=== PATIENT | male | born 1945 | race Caucasian/White ===

== ENCOUNTER 2024-07-19 07:13 | Emergency (ER) | payer OTHER ==
--- NOTE | 2024-07-19 07:35 | ED ---
General Adult HPI - General Chief complaint: Abdominal Pain Stated complaint: ABD Pain Time Seen by Provider: 07/19/24 07:14 Source: patient, family, RN notes reviewed Mode of arrival: ambulatory Limitations: no limitations - History of Present Illness Initial comments: Patient is a 79-year-old male presenting to the emergency department with concerns with abdominal discomfort. Onset of symptoms was around 3:30 in the morning. Discomfort worsened over the next few hours. Discomfort is mostly the upper abdomen. Patient had a small bowel movement without change of symptoms. No nausea or vomiting. No fevers. No history of similar symptoms previously. Abdomen feels firm and distended. Patient states discomfort does increase with deep breaths. No increase of discomfort with normal breaths. Patient denies feeling short of breath otherwise. - Related Data Home Medications Medication Instructions Recorded Confirmed Cholecalciferol (Vitamin D3) 50 mcg PO DAILY 07/19/24 07/19/24 [Vitamin D3 (50 Mcg = 2000 Iu)] Hydrocortisone Cream 1 applic TOPICAL BID PRN 07/19/24 07/19/24 [Hydrocortisone 1% Cream] Quercetin/Zinc/Vitamin C 1 tab PO DAILY 07/19/24 07/19/24 Supplement Gummy Saffron Supplement Gummy 1 tab PO HS 07/19/24 07/19/24 Super Beet Supplement 1 tab PO DAILY 07/19/24 07/19/24 metroNIDAZOLE 0.75% CREAM 1 applic TOPICAL BID PRN 07/19/24 07/19/24 [Metrocream 0.75%] Previous Rx's Medication Instructions Recorded Azithromycin [Zithromax Z Pack] 250 mg PO DAILY #6 tab 07/19/24 Allergies Allergy/AdvReac Type Severity Reaction Status Date / Time Penicillins Allergy Rash/Hives Verified 07/19/24 09:33 Review of Systems ROS Statement: Those systems with pertinent positive or pertinent negative responses have been documented in the HPI. ROS Other: All systems not noted in ROS Statement are negative. Constitutional: Denies: fever Eyes: Denies: eye pain ENT: Denies: ear pain Respiratory: Reports: as per HPI. Denies: cough Cardiovascular: Denies: chest pain Endocrine: Denies: fatigue Gastrointestinal: Reports: as per HPI, abdominal pain. Denies: nausea, vomiting, diarrhea, constipation Skin: Denies: rash Neurological: Denies: weakness Past Medical History Additional Past Medical History / Comment(s): Kidney stones Past Surgical History: Cholecystectomy, Hernia Repair Smoking Status: Never smoker Past Alcohol Use History: None Reported Past Drug Use History: None Reported General Exam Limitations: no limitations General appearance: alert, in no apparent distress Head exam: Present: normocephalic Eye exam: Present: normal appearance Neck exam: Present: normal inspection Respiratory exam: Present: normal lung sounds bilaterally. Absent: respiratory distress, wheezes, rales, rhonchi, accessory muscle use, decreased breath sounds Cardiovascular Exam: Present: regular rate, normal rhythm, normal heart sounds Expanded Peripheral pulses: 2+: Dorsalis Pedis (R), Dorsalis Pedis (L) GI/Abdominal exam: Present: soft, distended (Abdomen does appear mildly distended), tenderness (Mild diffuse tenderness), hyperactive bowel sounds. Absent: guarding, rebound, rigid, pulsatile mass Extremities exam: Present: pedal edema (Trace bilateral which patient states is chronic). Absent: calf tenderness Neurological exam: Present: alert Psychiatric exam: Present: normal affect, normal mood Skin exam: Present: normal color Course Vital Signs 07/19/24 07/19/24 07/19/24 07:14 07:41 09:07 Temperature 98.2 F Pulse Rate 114 H 112 H 93 Respiratory 22 20 18 Rate Blood Pressure 155/85 147/99 136/85 O2 Sat by Pulse 98 97 95 Oximetry EKG Findings - EKG Results: EKG: interpreted by ERMD (Inferior Q waves), sinus rhythm, normal axis, normal ST/T Medical Decision Making - Medical Decision Making Was pt. sent in by a medical professional or institution (, PA, WAREHOUSE SELECTOR, urgent care, hospital, or [facility]...) When possible be specific @ -No Did you speak to anyone other than the patient for history (EMS, parent, family, police, friend...)? What history was obtained from this source @ - is present helps provide history. Further discussion regarding treatment Did you review nursing and triage notes (agree or disagree)? Why? @ -I reviewed and agree with nursing and triage notes Were old charts reviewed (outside hosp., previous admission, EMS record, old EKG, old radiological studies, urgent care reports/EKG's, [facility] records)? Report findings @ -No old charts were reviewed Differential Diagnosis (chest pain, altered mental status, abdominal pain women, abdominal pain men, vaginal bleeding, weakness, fever, dyspnea, syncope, headache, dizziness, GI bleed, back pain, seizure, CVA, palpatations, mental health, musculoskeletal)? @ -Differential Abdominal Pain Men: Appendicitis, cholecystitis, diverticulosis, ischemic bowel, pancreatitis, hepatitis, UTI, gastroenteritis, AAA, incarcerated hernia, bowel obstruction, constipation, inflammatory bowel, hepatitis, peptic ulcer disease, splenic inf arction, perforated viscus, testicular torsion, this is not meant to be an all- inclusive list EKG interpreted by me (3pts min.). @ -As above X-rays interpreted by me (1pt min.). @ -Chest x-ray shows nonspecific mild increased interstitial change CT interpreted by me (1pt min.). @ -CT abdomen pelvis shows mesenteric panniculitis. Also groundglass opacity lower lungs U/S interpreted by me (1pt. min.). @ -None done What testing was considered but not performed or refused? (CT, X-rays, U/S, la bs)? Why? @ -COVID-19 testing What meds were considered but not given or refused? Why? @ -None Did you discuss the management of the patient with other professionals (professionals i.e. , PA, WAREHOUSE SELECTOR, lab, RT, psych nurse, home health care social worker, front desk, teacher, medical laboratory technical officer, business case analyst)? Give summary @ -No Was smoking cessation discussed for >3mins.? @ -No Was critical care preformed (if so, how long)? @ -No Were there social determinants of health that impacted care today? How? (Homelessness, low income, unemployed, alcoholism, drug addiction, transportation, low edu. Level, literacy, decrease access to med. care, care home, rehab)? @ -No Was there de-escalation of care discussed even if they declined (Discuss DNR or withdrawal of care, Hospice)? DNR status @ -Very long discussion with patient and family regarding recommendation for testing for COVID-19. Risks and benefits discussed. Recommendation to have it done for potential antibiotic versus other treatment. Despite this long conv ersation this was refused. Patient will be prescribed antibiotics for potential bacterial pneumonia. Patient and family do demonstrate understanding there could be side effects associated with unnecessary medication. It is felt to be more beneficial to treat for potential bacterial pneumonia versus nontreatment given the fact that we are unable to test for COVID-19 secondary to patient refusal What co-morbidities impacted this encounter? (DM, HTN, Smoking, COPD, CAD, Cancer, CVA, ARF, Chemo, Hep., AIDS, mental health diagnosis, sleep apnea, morbid obesity)? @ -None Was patient admitted / discharged? Hospital course, mention meds given and route, prescriptions, significant lab abnormalities, going to OR and other pertinent info. @ -Patient presents with abdominal discomfort increased with deep breaths. Patient has mesenteric panniculitis. Patient also has questionable pneumonia and will be treated with antibiotics. Patient is resting comfortably in bed with minimal to no symptoms at this time. Patient and family add there has been a mild cough. Patient will be covered with antibiotics and recommended close follow-up Undiagnosed new problem with uncertain prognosis? @ -No Drug Therapy requiring intensive monitoring for toxicity (Heparin, Nitro, Insulin, Cardizem)? @ -No Were any procedures done? @ -No Diagnosis/symptom? @ -Mesenteric panniculitis, cough Acute, or Chronic, or Acute on Chronic? @ -Acute, acute Uncomplicated (without systemic symptoms) or Complicated (systemic symptoms)? @ -Default Side effects of treatment? @ -No Exacerbation, Progression, or Severe Exacerbation? @ -No Poses a threat to life or bodily function? How? (Chest pain, [place], [place], pneumonia, PE, COPD, DKA, ARF, appy, cholecystitis, CVA, Diverticulitis, Homicidal, Suicidal, threat to staff... and all critical care pts) @ -Threat to abdominal and pulmonary function - Lab Data Result diagrams: 07/19/24 07:49 07/19/24 07:49 Lab Results 07/19/24 07/19/24 07/19/24 Range/Units 07:49 07:49 07:49 WBC 8.5 (3.8-10.6) k/uL RBC 4.63 (4.30-5.90) m/uL Hgb 14.5 (13.0-17.5) gm/dL Hct 43.9 (39.0-53.0) % MCV 94.8 (80.0-100.0) fL MCH 31.3 (25.0-35.0) pg MCHC 33.0 (31.0-37.0) g/dL RDW 13.3 (11.5-15.5) % Plt Count 150 (150-450) k/uL MPV 8.7 Neutrophils % 78 % Lymphocytes % 14 % Monocytes % 5 % Eosinophils % 1 % Basophils % 0 % Neutrophils # 6.6 (1.3-7.7) k/uL Lymphocytes # 1.2 (1.0-4.8) k/uL Monocytes # 0.5 (0-1.0) k/uL Eosinophils # 0.1 (0-0.7) k/uL Basophils # 0.0 (0-0.2) k/uL PT 10.5 (10.0-12.5) sec INR 1.0 (<1.2) APTT 25.1 (22.0-30.0) sec Sodium 140 (137-145) mmol/L Potassium 4.5 (3.5-5.1) mmol/L Chloride 108 H (98-107) mmol/L Carbon Dioxide 24 (22-30) mmol/L Anion Gap 8 mmol/L BUN 12 (9-20) mg/dL Creatinine 0.76 (0.66-1.25) mg/dL Est GFR (CKD-EPI)AfAm >90 (>60 ml/min/1.73 sqM) Est GFR (CKD-EPI)NonAf 88 (>60 ml/min/1.73 sqM) Glucose 102 H (74-99) mg/dL Calcium 8.5 (8.4-10.2) mg/dL Total Bilirubin 1.0 (0.2-1.3) mg/dL AST 38 (17-59) U/L ALT 27 (4-49) U/L Alkaline Phosphatase 39 (38-126) U/L Troponin I (0.000-0.034) ng/mL Total Protein 7.0 (6.3-8.2) g/dL Albumin 3.9 (3.5-5.0) g/dL Amylase 47 (30-110) U/L Lipase 42 (23-300) U/L Urine Color Urine Appearance (Clear) Urine pH (5.0-8.0) Ur Specific Roland (1.001-1.035) Urine Protein (Negative) Urine Glucose (UA) (Negative) Urine Ketones (Negative) Urine Blood (Negative) Urine Nitrite (Negative) Urine Bilirubin (Negative) Urine Urobilinogen (<2.0) mg/dL Ur Leukocyte Esterase (Negative) 07/19/24 07/19/24 Range/Units 07:49 08:21 WBC (3.8-10.6) k/uL RBC (4.30-5.90) m/uL Hgb (13.0-17.5) gm/dL Hct (39.0-53.0) % MCV (80.0-100.0) fL MCH (25.0-35.0) pg MCHC (31.0-37.0) g/dL RDW (11.5-15.5) % Plt Count (150-450) k/uL MPV Neutrophils % % Lymphocytes % % Monocytes % % Eosinophils % % Basophils % % Neutrophils # (1.3-7.7) k/uL Lymphocytes # (1.0-4.8) k/uL Monocytes # (0-1.0) k/uL Eosinophils # (0-0.7) k/uL Basophils # (0-0.2) k/uL PT (10.0-12.5) sec INR (<1.2) APTT (22.0-30.0) sec Sodium (137-145) mmol/L Potassium (3.5-5.1) mmol/L Chloride (98-107) mmol/L Carbon Dioxide (22-30) mmol/L Anion Gap mmol/L BUN (9-20) mg/dL Creatinine (0.66-1.25) mg/dL Est GFR (CKD-EPI)AfAm (>60 ml/min/1.73 sqM) Est GFR (CKD-EPI)NonAf (>60 ml/min/1.73 sqM) Glucose (74-99) mg/dL Calcium (8.4-10.2) mg/dL Total Bilirubin (0.2-1.3) mg/dL AST (17-59) U/L ALT (4-49) U/L Alkaline Phosphatase (38-126) U/L Troponin I <0.012 (0.000-0.034) ng/mL Total Protein (6.3-8.2) g/dL Albumin (3.5-5.0) g/dL Amylase (30-110) U/L Lipase (23-300) U/L Urine Color Yellow Urine Appearance Clear (Clear) Urine pH 7.0 (5.0-8.0) Ur Specific Roland 1.014 (1.001-1.035) Urine Protein Negative (Negative) Urine Glucose (UA) Negative (Negative) Urine Ketones Negative (Negative) Urine Blood Negative (Negative) Urine Nitrite Negative (Negative) Urine Bilirubin Negative (Negative) Urine Urobilinogen <2.0 (<2.0) mg/dL Ur Leukocyte Esterase Negative (Negative) Disposition Clinical Impression: Mesenteric panniculitis, Cough Disposition: HOME SELF-CARE Condition: Stable Instructions (If sedation given, give patient instructions): Acute Cough (ED), Bacterial Pneumonia (ED), COVID-19 (Coronavirus Disease 2019) (ED), Acute Abdominal Pain (ED) Additional Instructions: Please do follow-up with your primary care physician beginning of the week. Return for increased pain, fever, difficulty breathing, vomiting, worsening or changing symptoms or any other concerns. Have your primary care physician review notes and radiology results from today please. Prescriptions: Azithromycin [Zithromax Z Pack] 250 mg PO DAILY #6 tab Is patient prescribed a controlled substance at d/c from ED?: No Referrals: [facility],Clinic [Primary Care Provider] - 1-2 days Time of Disposition: 09:51
[2024-07-19] MEDS: FAMOTIDINE 20 MG/2 ML VIAL IV STA (07:52)
[2024-07-19] MEDS: HYDROmorphone 1 MG/ML 1 ML SYRINGE IVP STA (07:52)
[2024-07-19 07:59] LABS: Basophils % (A) 0 %; Eosinophils # (A) 0.1 k/uL (0-0.7); Eosinophils % (A) 1 %; HCT 43.9 % (39.0-53.0); HGB 14.5 gm/dL (13.0-17.5); Lymphocytes # (A) 1.2 k/uL (1.0-4.8); Lymphocytes % (A) 14 %; MCH 31.3 pg (25.0-35.0); MCV 94.8 fL (80.0-100.0); Mean Platelet Volume 8.7; Monocytes # (A) 0.5 k/uL (0-1.0); Monocytes % (A) 5 %; Neutrophils # (A) 6.6 k/uL (1.3-7.7); Neutrophils % (A) 78 %; Platelet Count 150 k/uL (150-450); RBC 4.63 m/uL (4.30-5.90); RDW 13.3 % (11.5-15.5); WBC 8.5 k/uL (3.8-10.6)
[2024-07-19 08:08] LABS: Partial Thromboplastin Time 25.1 sec (22.0-30.0); Prothrombin Time 10.5 sec (10.0-12.5)
[2024-07-19 08:11] LABS: ALT 27 U/L (4-49); African American GFR (CKD) >90 (>60 ml/min/1.73 sqM); Albumin 3.9 g/dL (3.5-5.0); Amylase 47 U/L (30-110); Anion Gap 8 mmol/L; Blood Urea Nitrogen 12 mg/dL (9-20); Calcium 8.5 mg/dL (8.4-10.2); Carbon Dioxide 24 mmol/L (22-30); Chloride 108 mmol/L (98-107); Glucose 102 mg/dL (74-99); Lipase 42 U/L (23-300); Non-African American GFR(CKD) 88 (>60 ml/min/1.73 sqM); Sodium 140 mmol/L (137-145)
[2024-07-19 08:22] LABS: AST 38 U/L (17-59); Alkaline Phosphatase 39 U/L (38-126); Potassium 4.5 mmol/L (3.5-5.1)
[2024-07-19 08:26] LABS: Appearance,Urine Clear (Clear); Bilirubin,Urine Negative (Negative); Blood,Urine Negative (Negative); Color,Urine Yellow; Glucose,Urine (UA) Negative (Negative); Ketones,Urine Negative (Negative); Leukocyte Esterase,Urine Negative (Negative); Nitrite,Urine Negative (Negative); Protein,Urine Negative (Negative); Specific Gravity,Urine 1.014 (1.001-1.035); Urobilinogen,Urine <2.0 mg/dL (<2.0)
--- NOTE | 2024-07-19 08:32 | XR ---
EXAMINATION TYPE: XR chest 2V DATE OF EXAM: 07/19/2024 COMPARISON: None HISTORY: 79-year-old male shortness of breath sudden onset abdominal pain TECHNIQUE: AP and lateral views FINDINGS: Low lung volumes with crowded vascular markings. Heart borderline to mildly enlarged. Mild interstiti al density. No beau consolidation or pleural effusion. [facility] within the lower thoracic spine. IMPRESSION: Portable exam further limited by hypoventilatory changes. Interstitial prominence could reflect mild pulmonary vascular congestion, bronchitis, or asthma. [facility], , 07/19/2024 8:29 AM
--- NOTE | 2024-07-19 09:06 | CT ---
EXAMINATION TYPE: CT abdomen pelvis w con DATE OF EXAM: 07/19/2024 COMPARISON: NONE HISTORY: 79-year-old male distention, pain under the ribs, abd pain TECHNIQUE: Contiguous axial scanning of the abdomen and pelvis following administration of 100 ml Iso [id number] IV contrast. Delayed images through the kidneys and coronal/sagittal reconstructions perform ed. CT DLP: 1631.2 mGycm Automated exposure control for dose reduction was used. FINDINGS: There is multifocal patchy groundglass opacities of the lower lungs. No pleural effusion. Heart normal size without pericardial effusion. Small hiatal hernia. Liver enlarged at 23.1 cm with low attenuation. No focal lesions seen. Portal venous system is patent . No biliary ductal dilatation. Cholecystectomy clips. Adrenal glands, spleen, and pancreas within normal limits. Bilateral benign renal cortical cysts measuring up to 10.3 cm on the left and to largest measuring 8. 0 and 6.6 cm on the right. Nonobstructive 6 mm stone on the right and 8 mm on the left. No dilated small bowel, free fluid, or free air. Some prominent fluid filled small bowel loops mid to lower abdomen may be transient. A couple prominent mid mesenteric lymph nodes measuring up to 9 mm with associated cesia mesentery. N o retroperitoneal adenopathy. Mild to moderate stool. Proximal sigmoid diverticulosis. No pericolonic inflammatory change. There is moderate circumferential bladder wall thickening. Prominent prostatomegaly at 7.1 cm wide. V as deferens calcifications. No abnormal fluid collection in the pelvis or pelvic lymphadenopathy. Degenerative bony ankylosis SI joints. 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 Degenerative grade 1 anterolisthesis L4-L5. There may be severe focal spinal canal stenoses at both L 4-L5 and L5-S1. DISH visualized thoracic spine. Moderate degenerative change of the hips. IMPRESSION: 1. PATCHY GROUNDGLASS INFILTRATES AT THE LOWER LUNGS. CORRELATE TO EXCLUDE ATYPICAL/COVID PNEUMONIA O R SHANK CUTTER. 2. MID ABDOMINAL CESIA MESENTERY WITH A COUPLE PROMINENT LYMPH NODES. FINDINGS MAY BE SEEN WITH MESEN TERIC PANNICULITIS. FOLLOW-UP CT IN 6 MONTHS TO ENSURE STABILITY/RESOLUTION AND EXCLUDE MORE AGGRESSI VE ETIOLOGIES SUCH EARLY LYMPHOMA. 3. Marked prostatomegaly at 7.1 cm wide. Correlate with symptoms and PSA values. 4. Moderate circumferential bladder wall thickening probably chronic bladder wall hypertrophy. Correl ate to exclude cystitis. 5. Hepatomegaly at 23.1 cm with underlying hepatic steatosis. 6. Small hiatal hernia. Mild proximal sigmoid diverticulosis. [facility], , 07/19/2024 9:04 AM
[2024-07-19 09:09] VITALS: RESP 18
[2024-07-19 10:01] VITALS: BP 125/99; PULSE 96; TEMP 99.8
== END 2024-07-19 10:03 | disposition home or self-care (01) ==
LOC: EC 07:13
CPT/HCPCS: 36415; 71046; 74177; 80053; 81003; 82150; 83690; 84484; 85025; 85610; 85730; 93005; 96374; 96375; 99285

== ENCOUNTER 2024-08-08 12:34 | Inpatient (IN) | payer OTHER ==
--- NOTE | 2024-08-08 13:39 | ED ---
General Adult HPI - General Chief complaint: Weakness Stated complaint: weakness Time Seen by Provider: 08/08/24 12:38 Source: patient, EMS, RN notes reviewed, old records reviewed Mode of arrival: EMS Limitations: no limitations - History of Present Illness Initial comments: 79 old male presenting with chief complaint of weakness. Patient reports weak ness and exertional dyspnea. He states he had recent diagnosis of COVID. He had 2 episodes of vomiting this morning with associated mild abdominal pain which is resolved. He denies fever. Denies central chest pain. - Related Data Home Medications Medication Instructions Recorded Confirmed No Known Home Medications 08/08/24 08/08/24 Allergies Allergy/AdvReac Type Severity Reaction Status Date / Time Penicillins Allergy Rash/Hives Verified 08/08/24 13:36 Review of Systems ROS Statement: Those systems with pertinent positive or pertinent negative responses have been documented in the HPI. ROS Other: All systems not noted in ROS Statement are negative. Past Medical History Additional Past Medical History / Comment(s): Kidney stones History of Any Multi-Drug Resistant Organisms: None Reported Past Surgical History: Cholecystectomy, Hernia Repair Past Psychological History: No Psychological Hx Reported Smoking Status: Never smoker Past Alcohol Use History: None Reported Past Drug Use History: None Reported General Exam Limitations: no limitations General appearance: alert, in no apparent distress Head exam: Present: atraumatic, normocephalic Eye exam: Present: normal appearance, PERRL ENT exam: Present: normal exam Neck exam: Present: normal inspection. Absent: tenderness, meningismus Respiratory exam: Present: normal lung sounds bilaterally. Absent: respiratory distress, wheezes, rhonchi Cardiovascular Exam: Present: normal rhythm, tachycardia GI/Abdominal exam: Present: soft. Absent: distended, tenderness, guarding, rebound Extremities exam: Present: normal inspection, normal capillary refill. Absent: pedal edema, calf tenderness Neurological exam: Present: alert, oriented X3, CN II-XII intact. Absent: motor sensory deficit Psychiatric exam: Present: normal affect, normal mood Skin exam: Present: warm, dry, intact. Absent: cyanosis, diaphoretic Course Vital Signs 08/08/24 08/08/24 08/08/24 12:35 12:45 13:42 Temperature 97.7 F Pulse Rate 109 H 108 H Respiratory 20 20 20 Rate Blood Pressure 131/84 106/80 O2 Sat by Pulse 97 96 Oximetry 08/08/24 14:45 Temperature Pulse Rate 111 H Respiratory 18 Rate Blood Pressure 141/92 O2 Sat by Pulse 95 Oximetry Medical Decision Making - Medical Decision Making Was pt. sent in by a medical professional or institution (FAROOQ Kerns, SILICA FILTER OPERATOR, urgent care, hospital, or penitentiary...) When possible be specific @ -[No] Did you speak to anyone other than the patient for history (EMS, parent, family, police, friend...)? What history was obtained from this source @ -[No] Did you review nursing and triage notes (agree or disagree)? Why? @ -[I reviewed and agree with nursing and triage notes] Were old charts reviewed (outside hosp., previous admission, EMS record, old EKG, old radiological studies, urgent care reports/EKG's, penitentiary records)? Report findings @ -[No old charts were reviewed] Differential Weakness: Hypoglycemia, shock, sepsis, hyponatremia, anemia, infection, NH, ETOH, adverse medicine reaction, overdose, stroke, this is not meant to be an all-inclusive list. EKG interpreted by me (3pts min.). @ -Sinus tachycardia rate of 110 AL interval 200, QRS duration 93, QTc 407 X-rays interpreted by me (1pt min.). @ -[None done] CT interpreted by me (1pt min.). @ -[None done] U/S interpreted by me (1pt. min.). @ -[None done] What testing was considered but not performed or refused? (CT, X-rays, U/S, labs)? Why? @ -[None] What meds were considered but not given or refused? Why? @ -[None] Did you discuss the management of the patient with other professionals (marivel chicas i.e. FAROOQ Kerns, SILICA FILTER OPERATOR, lab, RT, psych nurse, psychiatric social worker supervisor, denial management representative, teacher, legal compliance officer, embedded case manager)? Give summary @ -Case discussed with Dr. Mesa for vascular surgery, the admitting team s nd physician group and the plant assigner Dr. Diaz, at this time patient stable for 3 [place]. will monitor for ICU needs Was smoking cessation discussed for >3mins.? @ -[No] Was critical care preformed (if so, how long)? @ -[yes, 35 min Were there social determinants of health that impacted care today? How? (Homelessness, low income, unemployed, alcoholism, drug addiction, transportation, low edu. Level, literacy, decrease access to med. care, custodial, rehab)? @ -[No] Was there de-escalation of care discussed even if they declined (Discuss DNR or withdrawal of care, Hospice)? DNR status @ -[No] What co-morbidities impacted this encounter? (DM, HTN, Smoking, COPD, CAD, Cancer, CVA, ARF, Chemo, Hep., AIDS, mental health diagnosis, sleep apnea, morbid obesity)? @ -[None] Was patient admitted / discharged? Hospital course, mention meds given and route, prescriptions, significant lab abnormalities, going to OR and other pertinent info. @ -[79-year-old male with weakness, exertional dyspnea. Patient is tachycardic with otherwise stable vitals. Lungs are clear to auscultation. Patient has workup revealing significantly elevated D-dimer at 28. And troponin elevation at 0.5. High suspicion for pulmonary embolism. CT is confirming bilateral PE with right heart strain. Patient admitted to the ICU with both vascular and pulmonology on consult. He has started on high-dose heparin immediately upon diagnosis. Undiagnosed new problem with uncertain prognosis? @ -[No] Drug Therapy requiring intensive monitoring for toxicity (Heparin, Nitro, Insulin, Cardizem)? @ -[No] Were any procedures done? @ -[No] Diagnosis/symptom? @ -Bilateral pulmonary embolism with right heart strain Acute, or Chronic, or Acute on Chronic? @Acute Uncomplicated (without systemic symptoms) or Complicated (systemic symptoms)? @ -[Complicated Side effects of treatment? @ -[No] Exacerbation, Progression, or Severe Exacerbation? @ -[No] Poses a threat to life or bodily function? How? (Chest pain, USA, NH, pneumonia, PE, COPD, DKA, ARF, appy, cholecystitis, CVA, Diverticulitis, Homicidal, Suicid al, threat to staff... and all critical care pts) @ -Yes, bilateral PE - Lab Data Result diagrams: 08/08/24 12:59 08/08/24 12:59 Lab Results 08/08/24 08/08/24 08/08/24 Range/Units 12:59 12:59 12:59 WBC 13.9 H (3.8-10.6) k/uL RBC 5.07 (4.30-5.90) m/uL Hgb 16.3 (13.0-17.5) gm/dL Hct 49.1 (39.0-53.0) % MCV 96.8 (80.0-100.0) fL MCH 32.2 (25.0-35.0) pg MCHC 33.2 (31.0-37.0) g/dL RDW 13.6 (11.5-15.5) % Plt Count 162 (150-450) k/uL MPV 9.6 Neutrophils % 86 % Lymphocytes % 8 % Monocytes % 6 % Eosinophils % 0 % Basophils % 0 % Neutrophils # 12.0 H (1.3-7.7) k/uL Lymphocytes # 1.1 (1.0-4.8) k/uL Monocytes # 0.8 (0-1.0) k/uL Eosinophils # 0.0 (0-0.7) k/uL Basophils # 0.0 (0-0.2) k/uL PT 11.2 (10.0-12.5) sec INR 1.0 (<1.2) APTT 24.2 (22.0-30.0) sec D-Dimer 28.83 H (<0.60) mg/L FEU Sodium 140 (137-145) mmol/L Potassium 4.9 (3.5-5.1) mmol/L Chloride 106 (98-107) mmol/L Carbon Dioxide 24 (22-30) mmol/L Anion Gap 10 mmol/L BUN 18 (9-20) mg/dL Creatinine 0.92 (0.66-1.25) mg/dL Est GFR (CKD-EPI)AfAm >90 (>60 ml/min/1.73 sqM) Est GFR (CKD-EPI)NonAf 80 (>60 ml/min/1.73 sqM) Glucose 154 H (74-99) mg/dL Plasma Lactic Acid Berto (0.7-2.0) mmol/L Calcium 9.3 (8.4-10.2) mg/dL Magnesium 1.8 (1.6-2.3) mg/dL Total Bilirubin 0.9 (0.2-1.3) mg/dL AST 36 (17-59) U/L ALT 32 (4-49) U/L Alkaline Phosphatase 55 (38-126) U/L Troponin I (0.000-0.034) ng/mL Total Protein 7.8 (6.3-8.2) g/dL Albumin 4.6 (3.5-5.0) g/dL Influenza Type A (PCR) (Not Detectd) Influenza Type B (PCR) (Not Detectd) RSV (PCR) (Not Detectd) SARS-CoV-2 (PCR) (Not Detectd) 08/08/24 08/08/24 08/08/24 Range/Units 12:59 12:59 13:20 WBC (3.8-10.6) k/uL RBC (4.30-5.90) m/uL Hgb (13.0-17.5) gm/dL Hct (39.0-53.0) % MCV (80.0-100.0) fL MCH (25.0-35.0) pg MCHC (31.0-37.0) g/dL RDW (11.5-15.5) % Plt Count (150-450) k/uL MPV Neutrophils % % Lymphocytes % % Monocytes % % Eosinophils % % Basophils % % Neutrophils # (1.3-7.7) k/uL Lymphocytes # (1.0-4.8) k/uL Monocytes # (0-1.0) k/uL Eosinophils # (0-0.7) k/uL Basophils # (0-0.2) k/uL PT (10.0-12.5) sec INR (<1.2) APTT (22.0-30.0) sec D-Dimer (<0.60) mg/L FEU Sodium (137-145) mmol/L Potassium (3.5-5.1) mmol/L Chloride (98-107) mmol/L Carbon Dioxide (22-30) mmol/L Anion Gap mmol/L BUN (9-20) mg/dL Creatinine (0.66-1.25) mg/dL Est GFR (CKD-EPI)AfAm (>60 ml/min/1.73 sqM) Est GFR (CKD-EPI)NonAf (>60 ml/min/1.73 sqM) Glucose (74-99) mg/dL Plasma Lactic Acid Berto 3.7 H* (0.7-2.0) mmol/L Calcium (8.4-10.2) mg/dL Magnesium (1.6-2.3) mg/dL Total Bilirubin (0.2-1.3) mg/dL AST (17-59) U/L ALT (4-49) U/L Alkaline Phosphatase (38-126) U/L Troponin I 0.556 H* (0.000-0.034) ng/mL Total Protein (6.3-8.2) g/dL Albumin (3.5-5.0) g/dL Influenza Type A (PCR) Not Detected (Not Detectd) Influenza Type B (PCR) Not Detected (Not Detectd) RSV (PCR) Not Detected (Not Detectd) SARS-CoV-2 (PCR) Not Detected (Not Detectd) Critical Care Time Critical Care Time: Yes Total Critical Care Time: 35 Disposition Clinical Impression: Bilateral pulmonary embolism Disposition: ADMITTED IP TO THIS [facility] Condition: Stable Is patient prescribed a controlled substance at d/c from ED?: No Time of Disposition: 14:40
[2024-08-08] MEDS: SODIUM CHLORIDE 0.9% 1,000 ML IV STA (13:40)
--- NOTE | 2024-08-08 13:45 | XR ---
EXAMINATION TYPE: XR chest 2V DATE OF EXAM: 08/08/2024 1:20 PM COMPARISON: 07/19/2024 CLINICAL INDICATION: Male, 79 years old with history of Weakness, short of breath TECHNIQUE: XR chest 2V view(s) obtained. FINDINGS: The heart size is normal. The pulmonary vasculature is normal. The lungs are clear. IMPRESSION: 1. No acute pulmonary process. [facility], , 08/08/2024 1:43 PM
[2024-08-08 14:06] LABS: ALT 32 U/L (4-49); AST 36 U/L (17-59); African American GFR (CKD) >90 (>60 ml/min/1.73 sqM); Albumin 4.6 g/dL (3.5-5.0); Alkaline Phosphatase 55 U/L (38-126); Anion Gap 10 mmol/L; Blood Urea Nitrogen 18 mg/dL (9-20); Calcium 9.3 mg/dL (8.4-10.2); Carbon Dioxide 24 mmol/L (22-30); Chloride 106 mmol/L (98-107); Glucose 154 mg/dL (74-99); Magnesium 1.8 mg/dL (1.6-2.3); Non-African American GFR(CKD) 80 (>60 ml/min/1.73 sqM); Potassium 4.9 mmol/L (3.5-5.1); Sodium 140 mmol/L (137-145); Total Bilirubin 0.9 mg/dL (0.2-1.3); Total Protein 7.8 g/dL (6.3-8.2)
[2024-08-08 14:08] LABS: Partial Thromboplastin Time 24.2 sec (22.0-30.0); Prothrombin Time 11.2 sec (10.0-12.5)
[2024-08-08 14:11] LABS: Basophils % (A) 0 %; Eosinophils % (A) 0 %; HCT 49.1 % (39.0-53.0); HGB 16.3 gm/dL (13.0-17.5); Lymphocytes # (A) 1.1 k/uL (1.0-4.8); Lymphocytes % (A) 8 %; MCH 32.2 pg (25.0-35.0); MCHC 33.2 g/dL (31.0-37.0); MCV 96.8 fL (80.0-100.0); Mean Platelet Volume 9.6; Monocytes # (A) 0.8 k/uL (0-1.0); Monocytes % (A) 6 %; Neutrophils % (A) 86 %; Platelet Count 162 k/uL (150-450); RBC 5.07 m/uL (4.30-5.90); RDW 13.6 % (11.5-15.5); WBC 13.9 k/uL (3.8-10.6)
[2024-08-08] MEDS ORDERED: HEPARIN SODIUM 1,000 UN/ML (10ML VL) IV PRN (14:29)
[2024-08-08] MEDS ORDERED: ACETAMINOPHEN TAB 325 MG TAB PO PRN (14:37)
[2024-08-08] MEDS ORDERED: NALOXONE 0.4 MG/ML 1 ML VIAL IV PRN (14:37)
[2024-08-08] MEDS: HEPARIN SODIUM 1,000 UN/ML (10ML VL) IV ONE (14:40)
[2024-08-08] MEDS: HEPARIN SOD,PORK IN 0.45% NACL 25,000 UNIT in 0.45% NACL 1 250ML.BAG IV SCH (14:40)
--- NOTE | 2024-08-08 14:51 | CT ---
EXAMINATION TYPE: CT angio chest DATE OF EXAM: 08/08/2024 2:31 PM COMPARISON: Chest radiograph from same day. CLINICAL INDICATION: Male, 79 years old with history of LUBA; LUBA starting this morning. TECHNIQUE/CONTRAST: CTA scan of the thorax is performed with IV Contrast, patient injected with 100 ml mL of Isovue 370, MIP images are created and reviewed these are created on a separate workstation. CT DLP: 497.4 mGycm, Automated exposure control for dose reduction was used. FINDINGS: Lungs/Pleura: No evidence of focal consolidation, pleural streaky atelectasis in the lung bases. Effu evelina or pneumothorax. Airway: Large airways are patent. Heart: Heart is within normal limits for size. Vasculature: Bilateral pulmonary embolus involving the pulmonary arteries extending to this segment l obar, segmental and subsegmental branches. There is reflux of contrast into the IVC as well as eviden ce of right heart strain. Majority of the filling defects appear more central. Mediastinum: No gross evidence of adenopathy. Musculoskeletal: No acute osseous abnormalities Soft Tissues/lymph nodes: Unremarkable. Lower neck: No significant findings. Upper Abdomen: Bilateral renal cysts measuring up to 10 cm on the right and 8.3 cm on the left. Diffu se low-attenuation to the liver parenchyma. IMPRESSION: 1. Bilateral pulmonary embolus involving the pulmonary arteries extending to this segment lobar, seg mental and subsegmental branches. There is evidence of right heart strain. RV LV ratio of 50/35= 1.42 cardiothoracic surgery consultation recommended 2. Hepatic steatosis. Findings communicated to Dr. Sai Peña MD on 08/08/2024 2:[address] Sai Cordova. Follow up recommendations for incidental pulmonary nodules, if there are any, are per [employer] or [employer]. https://radiopaedia.org/articles/jigawhwhbk-rfoxzoz-hepuzcxae-wfjlxb-sjpfgekzjkenymo-[email or web address]?lang=us [facility], Workstation: [id number], 08/08/2024 2:49 PM
--- NOTE | 2024-08-08 15:33 | P.CNPUL ---
History of Present Illness Consult date: 08/08/24 Requesting physician: Raymond Lewis Reason for consult: pulmonary embolism Chief complaint: Shortness of breath History of present illness: This is a 79-year-old white male with history of nephrolithiasis, history of basal cell carcinoma of the nose, non-smoker, no known history of malignancy, no previous history of DVT or pulmonary embolism, patient has a very sedentary lifestyle, he was seen in the ER here back on 07/19/2024, patient was seen for upper abdominal discomfort and lower chest pain the pain was mostly more pronounced when he took a deep breath. Described by the ER physician as discomfort increased with deep breathing, patient was diagnosed as having mesenteric panniculitis with cough, discharged home and advised to follow-up with his primary care physician. Patient was discharged on Zithromax/in the form of Z-Didier. Patient did well for a while, but he came back to the ER today complaining of shortness of breath when he takes a deep breath and pleuritic chest pain. His shortness of breath has become much more pronounced compared to how he felt on the last ER visit. Patient denies any history of recent COVID-19 infection although in the ER note there was mention of recent diagnosis of COVID-19 infection but when the patient was asked about any recent history of COVID-19 infection, the patient clearly deniedCT angiogram of the chest showed bilateral pulmonary embolism involving the pulmonary arteries extending to the lobar segment, and subsegmental branches. CT also showed possible RV strain. Clinically however the patient is not in any distress, he is hemodynamically stable, and echocardiogram is pending. Patient is now on high intensity heparin , basically has no active pulmonary symptoms during my evaluation at rest, but again he did come in with dyspnea on exertion WBC count 13.9 hemoglobin 16.3 platelets are normal basic metabolic profile is normal D-dimer is elevated at 28.83, troponin is elevated at 0.556. Patient has elevated PSA of 13.4 noted from last year. And he normally sees urology for elevated PSA Review of Systems REVIEW OF SYSTEMS: CONSTITUTIONAL: Negative. EYES: Negative. ENT: Negative. CARDIAC: Negative. PULMONARY: As noted in HPI GI: Negative. GENITOURINARY: Negative. MUSCULOSKELETAL: Negative. SKIN: History of basal cell carcinoma/nose NEUROPSYCH: Negative. ENDOCRINE: Negative. HEMATOLOGIC: Negative. Past Medical History Additional Past Medical History / Comment(s): Kidney stones History of Any Multi-Drug Resistant Organisms: None Reported Past Surgical History: Cholecystectomy, Hernia Repair Past Psychological History: No Psychological Hx Reported Smoking Status: Never smoker Past Alcohol Use History: None Reported Past Drug Use History: None Reported Medications and Allergies Home Medications Medication Instructions Recorded Confirmed Type No Known Home Medications 08/08/24 08/08/24 History Allergies Allergy/AdvReac Type Severity Reaction Status Date / Time Penicillins Allergy Rash/Hives Verified 08/08/24 13:36 Physical Exam Vitals: Vital Signs Temp Pulse Resp BP Pulse Ox 08/08/24 14:45 111 H 18 141/92 95 08/08/24 13:42 108 H 20 106/80 96 08/08/24 12:45 20 08/08/24 12:35 97.7 F 109 H 20 131/84 97 Intake and Output 08/08/24 08/08/24 08/08/24 06:59 14:59 22:59 Other: Weight 108.862 kg General: Revealed 79-year-old white male on room air, not in any distress Skin: Skin is warm and dry and no rashes or lesions are noted. Eye: Pupils are equal, round and reactive to light, extra-ocular movements are intact; there is normal conjunctiva bilaterally. Ears, nose, mouth and throat: There are moist mucous membranes and no oral lesions. Neck: The neck is supple, there is no tenderness or JVD. Cardiovascular: There is a regular rate and rhythm. No murmur, rub or gallop is appreciated. Respiratory: Clear throughout no crackles rhonchi or wheezes Gastrointestinal: Soft, non-distended, non-tender abdomen without masses or organomegaly noted. There is no rebound or guarding present. Bowel sounds are unremarkable. Back: There is no tenderness to palpation in the midline. There is no obvious deformity. Musculoskeletal: Normal ROM, no tenderness, swelling of the left calf region is noted but no tenderness on palpation Neurological: CN II-XII intact, Cranial nerves III through XII are intact. Psychiatric: Normal mood, affect and normal mental status examination Skin: No rashes Results - Laboratory Findings CBC and BMP: 08/08/24 12:59 08/08/24 12:59 PT/INR, D-dimer PT 11.2 sec (10.0-12.5) 08/08/24 12:59 INR 1.0 (<1.2) 08/08/24 12:59 D-Dimer 28.83 mg/L FEU (<0.60) H 08/08/24 12:59 Abnormal lab findings: Abnormal Labs 08/08/24 08/08/24 08/08/24 12:59 12:59 12:59 WBC 13.9 H Neutrophils # 12.0 H D-Dimer 28.83 H Glucose 154 H Plasma Lactic Acid Berto Troponin I 08/08/24 08/08/24 12:59 12:59 WBC Neutrophils # D-Dimer Glucose Plasma Lactic Acid Berto 3.7 H* Troponin I 0.556 H* - Diagnostic Findings CT scan - chest: image reviewed (As noted in HPI) Assessment and Plan Assessment: Impression: Acute bilateral pulmonary embolism, possible RV strain as noted on CT angiogram of the chest however clinically the patient is stable and he is on high intensity heparin. History of nephrolithiasis History of elevated PSA, needs to be further evaluated on outpatient basis History of basal cell carcinoma of the skin Recommendation: Continue heparin Echocardiogram is pending Admit patient to the cardiac floor Patient to be seen by vascular surgery for possible EKOS thrombolysis or thrombectomy In the meantime continue present supportive care measures, will continue to follow Time with Patient: Greater than 30
--- NOTE | 2024-08-08 16:20 | CA ---
Transthoracic Echo Report Name: Anatoliy Dumont Age: 79 Gender: M : 1945 Exam Date: 08/08/2024 15:22 Exam Location: [facility] Ht (in): 72 Wt (lb): 240 Ordering Physician: Sai ePña MD Attending/Referring Phys: [id number], Casey Vp [employer] Judith Moreno RDCS Procedure CPT: Indications: PE Cardiac Hx: Technical Quality: Fair Contrast 1: Total Dose (mL): Contrast 2: Total Dose (mL): MEASUREMENTS (Male / Female) Normal Values 2D ECHO LV Diastolic Diameter PLAX 3.4 cm 4.2 - 5.9 / 3.9 - 5.3 cm LV Systolic Diameter PLAX 2.2 cm IVS Diastolic Thickness 1.4 cm 0.6 - 1.0 / 0.6 - 0.9 cm LVPW Diastolic Thickness 1.5 cm 0.6 - 1.0 / 0.6 - 0.9 cm LV Relative Wall Thickness 0.9 RV Internal Dim ED PLAX 3.9 cm LVOT Diameter 2.3 cm LA Systolic Diameter LX 3.4 cm 3.0 - 4.0 / 2.7 - 3.8 cm LA Volume 35.2 cm??? 18 - 58 / 22 - 52 cm??? LA Volume Index 14.8 cm???/m??? 16 - 28 cm???/m??? M-MODE Aortic Root Diameter MM 3.5 cm AV Cusp Separation MM 1.3 cm DOPPLER AV Peak Velocity 96.5 cm/s AV Peak Gradient 3.7 mmHg MV Area PHT 5.6 cm??? Mitral E Point Velocity 104.2 cm/s Mitral A Point Velocity 59.6 cm/s Mitral E to A Ratio 1.7 MV Deceleration Time 134.5 ms MV E' Velocity 14.1 cm/s Mitral E to MV E' Ratio 7.4 TR Peak Velocity 299.2 cm/s TR Peak Gradient 35.8 mmHg Right Ventricular Systolic Press 49.9 mmHg FINDINGS Left Ventricle Left ventricular ejection fraction is estimated at 55-60 %. Moderate concentric left ventricular hypertrophy. Normal left ventricular wall motion. Right Ventricle Moderate right ventricular dilatation. Moderate pulmonary hypertension. Right ventricular systolic pressure estimated at 50 mm hg. Right Atrium Moderate right atrial dilatation. Mobile right atrial thrombus. Left Atrium Normal left atrial size. No left atrial thrombus or mass present. Mitral Valve Structurally normal mitral valve. No mitral stenosis, or prolapse.mild mitral regurgitation. Aortic Valve Trileaflet aortic valve. No aortic valve stenosis or regurgitation.aortic valve sclerosis. Tricuspid Valve Structurally normal tricuspid valve. moderate tricuspid regurgitation. Pulmonic Valve Pulmonic valve not well visualized. Trace to mild pulmonic regurgitation. Pericardium No pericardial or pleural effusion. Aorta Normal size aortic root and proximal ascending aorta. CONCLUSIONS 1. Normal left ventricular size and systolic function 2. Dilated right ventricle with global hypokinesis sparing the apex and moderate pulmonary hypertension 3. An echogenic area in the right atrium consistent with thrombus, measuring up to 3.2 cm 4. Moderate tricuspid and mild mitral regurgitation Previewed by: Dr. Adriana Prince MD (Electronically Signed) Final Date: 08 August 2024 16:19
[2024-08-08] MEDS ORDERED: DEXTROSE 50% SYRINGE 50 ML IVP PRN ×2 (16:35)
--- NOTE | 2024-08-08 16:43 | P.HPIM ---
History of Present Illness H&P Date: 08/08/24 Patient is a 79-year-old male with no significant past medical history presents the ER with sudden onset shortness of breath starting this morning. Patient states that he was at home and was going to the restroom when he suddenly felt short of breath. Patient describes that he could not take deep breaths and had to sit down to make himself feel better. No alleviating and exacerbating factors. However he continued to feel short of breath associated with some chest tightness as well as nausea which prompted him to call 911 and come to the ER for further assessment. Patient denies history of pulmonary embolism, DVT, blood clot disorders, recent hospitalization or recent travel. Patient denies any recent respiratory tract infection such as COVID-19 or vaccination. Denies any pain in the legs however does admit to have mild swelling in left leg. Denies any history of CAD and or CVA. He is a lifetime non-smoker and drinks socially and denies any use of illicit drug. Patient admits to live a sedentary lifestyle however he is ambulatory at home and is independent in his ADLs. 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 Labs and images: Chest CTA in the ER shows findings for segmental bilateral pulmonary embolus with right heart strain. EKG interpreted independently shows sinus tachycardia with S1Q3T3 pattern noted. IA interval is prolonged. Chest x-ray interpreted independently shows no acute cardiopulmonary process. Echocardiogram shows right atrial thrombus. LVEF 55 to 60% Laboratory evaluation in the ER shows WBC 13.9, D-dimer 28.83, lactic acid 3.7 and troponin I 0.556. Respiratory viral panel including COVID-19 is negative Vital signs: Tmax 97.7 F, pulse rate 110, respiratory rate 20, blood pressure 131/84, oxygen saturation 97% on room air Review of systems: Pertinent positives and negatives as discussed in HPI, a complete review of systems was performed and all other systems are negative. Social history: As above Family History: No family history of blood clot disorder Physical examination: Vital signs reviewed General: non toxic, no distress, appears at stated age, normal weight Derm: no unusual rashes/lesions, warm Head: atraumatic, normocephalic, symmetric Eyes: EOMI, no lid lag, anicteric sclera, pupils equal round reactive to light ENT: Nose and ears atraumatic Neck: No cervical lymphadenopathy, trachea midline, supple Mouth: no lip lesion, mucus membranes moist Cardiovascular: S1S2 reg, no murmur, positive dorsalis pedis pulse bilateral, 2+ LLE pitting edema Lungs: CTA bilateral, no rhonchi, no rales, no accessory muscle use Abdominal: soft, nontender to palpation, no guarding Ext: muscle strength 5 out of 5 in all 4 extremities grossly, no gross muscle atrophy, no contractures, Neuro: CN II-XI grossly intact, no gross focal neuro deficits Psych: Alert, oriented, appropriate affect Assessment/Plan: Patient is a 79-year-old male with no significant past medical history presents the ER with sudden onset shortness of breath starting this morning. ED documentation reviewed and case discussed with ED provider. Patient is admitted to internal medicine service for submassive PE. #High risk submassive PE likely provoked in the setting of recent CT abdomen findings #Right heart strain Patient experiencing sudden onset shortness of breath Chest CTA in the ER shows findings for segmental bilateral pulmonary embolus with right heart strain EKG sinus tachycardia with S1Q3T3 pattern Echocardiogram shows right atrial thrombus. LVEF 55 to 60%. WBC 13.9, D-dimer 28.83, lactic acid 3.7 and troponin I 0.556. Heart rate 110 Order heparin drip, monitor PTT for toxicity Consult cardiothoracic Consult pulmonology Consult cardiology Patient to be transferred to the ICU Consider EKOS procedure Continue cardiac monitoring Continue to monitor vital signs Order lipid panel CT abdomen 07/19/2024 that showed findings for mesenteric panniculitis with prominent mesenteric lymph nodes #Elevated leukocytosis likely reactive to above WBC 13.9 Monitor CBC #Hyperglycemia likely reactive to above Continue to monitor glucose levels Accu-Cheks and sliding scale insulin Check HbA1c DVT prophylaxis: Heparin drip The patient is admitted with an anticipated more than 2 midnight stay for evaluation of submassive PE CODE STATUS: Full code, is a surrogate decision-maker Discussed with: Patient Anticipated discharge place: Pending clinical course I saw and evaluated the patient during the atwood and critical portions of this encounter, and discussed the case in detail with the resident author of this note, I agree with the Assessment and Plan, and my changes, if any, are highlighted in blue. Past Medical History Additional Past Medical History / Comment(s): Kidney stones History of Any Multi-Drug Resistant Organisms: None Reported Past Surgical History: Cholecystectomy, Hernia Repair Past Psychological History: No Psychological Hx Reported Smoking Status: Never smoker Past Alcohol Use History: None Reported Past Drug Use History: None Reported Medications and Allergies Home Medications Medication Instructions Recorded Confirmed Type No Known Home Medications 08/08/24 08/08/24 History Allergies Allergy/AdvReac Type Severity Reaction Status Date / Time Penicillins Allergy Rash/Hives Verified 08/08/24 13:36 Physical Exam Osteopathic Statement: *. No significant issues noted on an osteopathic struc tural exam other than those noted in the History and Physical/Consult. Vitals: Vital Signs Temp Pulse Resp BP Pulse Ox 08/08/24 16:03 106 H 20 134/91 94 L 08/08/24 14:45 111 H 18 141/92 95 08/08/24 13:42 108 H 20 106/80 96 08/08/24 12:45 20 08/08/24 12:35 97.7 F 109 H 20 131/84 97 Intake and Output 08/08/24 08/08/24 08/08/24 06:59 14:59 22:59 Other: Weight 108.862 kg Results CBC & Chem 7: 08/08/24 12:59 08/08/24 12:59 Labs: Abnormal Lab Results - Last 24 Hours (Table) 08/08/24 08/08/24 08/08/24 Range/Units 12:59 12:59 12:59 WBC 13.9 H (3.8-10.6) k/uL Neutrophils # 12.0 H (1.3-7.7) k/uL D-Dimer 28.83 H (<0.60) mg/L FEU Glucose 154 H (74-99) mg/dL Plasma Lactic Acid Berto (0.7-2.0) mmol/L Troponin I (0.000-0.034) ng/mL 08/08/24 08/08/24 Range/Units 12:59 12:59 WBC (3.8-10.6) k/uL Neutrophils # (1.3-7.7) k/uL D-Dimer (<0.60) mg/L FEU Glucose (74-99) mg/dL Plasma Lactic Acid Berto 3.7 H* (0.7-2.0) mmol/L Troponin I 0.556 H* (0.000-0.034) ng/mL
[2024-08-08] MEDS: INSULIN ASPART (NovoLOG) 100 UNIT/ML VIAL SQ SCH (17:22)
[2024-08-08 17:23] LABS: Glucose,Whole Blood 122 mg/dL (70-110)
[2024-08-08 22:38] LABS: Glucose,Whole Blood 109 mg/dL (70-110)
[2024-08-09 04:40] LABS: Basophils % (A) 0 %; Eosinophils # (A) 0.1 k/uL (0-0.7); Eosinophils % (A) 1 %; HCT 42.7 % (39.0-53.0); HGB 13.7 gm/dL (13.0-17.5); Lymphocytes # (A) 1.9 k/uL (1.0-4.8); Lymphocytes % (A) 17 %; MCHC 32.1 g/dL (31.0-37.0); MCV 96.5 fL (80.0-100.0); Mean Platelet Volume 8.8; Monocytes # (A) 0.8 k/uL (0-1.0); Monocytes % (A) 7 %; Neutrophils # (A) 8.4 k/uL (1.3-7.7); Neutrophils % (A) 74 %; Platelet Count 113 k/uL (150-450); RBC 4.42 m/uL (4.30-5.90); RDW 13.3 % (11.5-15.5); WBC 11.4 k/uL (3.8-10.6)
[2024-08-09 05:19] LABS: African American GFR (CKD) >90 (>60 ml/min/1.73 sqM); Anion Gap 8 mmol/L; Blood Urea Nitrogen 17 mg/dL (9-20); Calcium 8.7 mg/dL (8.4-10.2); Carbon Dioxide 22 mmol/L (22-30); Chloride 110 mmol/L (98-107); Glucose 106 mg/dL (74-99); Non-African American GFR(CKD) 87 (>60 ml/min/1.73 sqM); Potassium 4.1 mmol/L (3.5-5.1); Sodium 140 mmol/L (137-145)
[2024-08-09 07:46] LABS: Glucose,Whole Blood 94 mg/dL (70-110)
--- NOTE | 2024-08-09 09:09 | P.CRDCN ---
History of Present Illness Consult date: 08/09/24 History of present illness: History of Present Illness: The patient is a 79-year-old male who was admitted through the emergency room yesterday with an acute episode of dyspnea and was diagnosed with pulmonary embolism. His CT scan of the chest showed bilateral pulmonary embolism with RV strain. He was seen in the emergency room on 19 July with abdominal discomfo rt and at that time had a CT scan of the abdomen that showed mid abdominal cesia mesentery with prominent lymph nodes. He had patchy groundglass infiltrate in the lower lungs. He was treated for possible infection. Patient is not very active physically but has no history of recent surgery. He has no lower extremities discomfort or swelling and has no recent trauma. He denies any history of peripheral edema, PND or orthopnea. He has no history of ischemic heart disease or heart failure. He is followed on a regular basis at the [facility] in [place]. He is a non-smoker and has no history of diabetes. His echocardiogram showed a dilated right ventricle, moderate pulmonary hypertension and evidence of right atrial thrombus. His troponin was mildly elevated on presentation. The patient according to the nursing staff has been scheduled to undergo a procedure by Dr. Huitron today. Medications: He was started on IV heparin Review of Systems: Respiratory: He has a history of acute dyspnea but no history of obstructive lung disease GI: No nausea or vomiting . No history of peptic ulcer disease. No recent GI bleed. : No hematuria or dysuria. Nervous System: No stroke or seizure. Physical Examination: 79-year-old male, alert oriented no apparent distress,Blood pressure 122/80, H eart rate 80 Head: Normocephalic. Eyes: Sclerae nonicteric. Neck: Good carotid upstroke, no bruit, no jugular venous distention. Lungs: Clear to auscultation. Heart: Regular rate and rhythm, S1-S2, no S3, no rub. No murmur. Abdomen: Soft nontender, positive bowel sounds no organomegaly. Extremities: No edema, intact distal pulses., Homans signs negative Labs: WBC 13.9, hemoglobin 16.3, potassium 4.9, BUN 18, creatinine 0.92. Troponin 0.556. Chest x-ray with no acute infiltrate EKG: Sinus mechanism, rate of 110 normal intervals cannot exclude inferior wall myocardial infarction of unknown timing, no change since June Impression: 1. Acute pulmonary embolism, bilateral with RV strain and evidence of right atrial thrombus 2. Troponin elevation secondary to the pulmonary embolism, no evidence of primary ischemic event 3. Abnormal CT scan of the abdomen, no clear diagnosis 4. Prior history of nephrolithiasis Plan: 1. Continue IV heparin 2. Obtain duplex scan of the lower extremities 3. Patient will be evaluated by vascular surgery for EKOS or thrombectomy, according to the nursing staff he is scheduled to undergo the procedure today 4. Continue IV heparin for now and subsequent change to Eliquis 5. Depending on his progress further recommendations will be made, thank you for this consult we will follow with you Past Medical History Additional Past Medical History / Comment(s): Kidney stones History of Any Multi-Drug Resistant Organisms: None Reported Past Surgical History: Cholecystectomy, Hernia Repair Past Psychological History: No Psychological Hx Reported Smoking Status: Never smoker Past Alcohol Use History: None Reported Past Drug Use History: None Reported Medications and Allergies Home Medications Medication Instructions Recorded Confirmed Type No Known Home Medications 08/08/24 08/08/24 History Allergies Allergy/AdvReac Type Severity Reaction Status Date / Time Penicillins Allergy Rash/Hives Verified 08/08/24 13:36 Physical Exam Vitals: Vital Signs Temp Pulse Resp BP Pulse Ox 08/09/24 07:22 98.2 F 86 24 122/86 96 08/09/24 06:00 89 24 112/80 95 08/09/24 05:00 87 24 110/79 96 08/09/24 04:00 87 24 125/84 96 08/09/24 03:00 90 23 120/83 96 08/09/24 02:00 92 26 H 111/80 94 L 08/09/24 01:00 92 26 H 116/77 95 08/09/24 00:00 92 18 117/80 93 L 08/08/24 23:00 99 18 121/90 95 08/08/24 22:00 98 19 115/56 94 L 08/08/24 21:00 98 18 100/71 95 08/08/24 20:00 100 18 123/94 95 08/08/24 19:13 100 21 127/89 96 08/08/24 18:00 98.1 F 110 H 18 118/87 94 L 08/08/24 17:24 98.1 F 106 H 18 103/59 93 L 08/08/24 16:03 106 H 20 134/91 94 L 08/08/24 14:45 111 H 18 141/92 95 08/08/24 13:42 108 H 20 106/80 96 08/08/24 12:45 20 08/08/24 12:35 97.7 F 109 H 20 131/84 97 Intake and Output 08/08/24 08/09/24 08/09/24 22:59 06:59 14:59 Intake Total 132.593 120.018 Balance 132.593 120.018 Intake: Intake, IV Titration 132.593 120.018 Amount Heparin Sod,Pork in 0.45% 132.593 120.018 NaCl 25,000 unit In 0.45 % NaCl 1 250ml.bag @ 18 UNITS/KG/HR 19.595 mls/hr IV .[id number] [facility] Rx#: [id number] Results 08/09/24 04:27 08/09/24 04:27 Cardiac Enzymes 08/08/24 08/08/24 Range/Units 12:59 12:59 AST 36 (17-59) U/L Troponin I 0.556 H* (0.000-0.034) ng/mL Coagulation 08/08/24 08/08/24 08/09/24 Range/Units 12:59 20:29 04:27 PT 11.2 (10.0-12.5) sec APTT 24.2 162.7 H* 82.1 H (22.0-30.0) sec CBC 08/08/24 08/09/24 Range/Units 12:59 04:27 WBC 13.9 H 11.4 H (3.8-10.6) k/uL RBC 5.07 4.42 (4.30-5.90) m/uL Hgb 16.3 13.7 (13.0-17.5) gm/dL Hct 49.1 42.7 (39.0-53.0) % Plt Count 162 113 L (150-450) k/uL Comprehensive Metabolic Panel 08/08/24 08/09/24 Range/Units 12:59 04:27 Sodium 140 140 (137-145) mmol/L Potassium 4.9 4.1 (3.5-5.1) mmol/L Chloride 106 110 H (98-107) mmol/L Carbon Dioxide 24 22 (22-30) mmol/L BUN 18 17 (9-20) mg/dL Creatinine 0.92 0.77 (0.66-1.25) mg/dL Glucose 154 H 106 H (74-99) mg/dL Calcium 9.3 8.7 (8.4-10.2) mg/dL AST 36 (17-59) U/L ALT 32 (4-49) U/L Alkaline Phosphatase 55 (38-126) U/L Total Protein 7.8 (6.3-8.2) g/dL Albumin 4.6 (3.5-5.0) g/dL Current Medications Generic Name Dose Route Start Last Admin Trade Name Freq PRN Reason Stop Dose Admin Acetaminophen 650 mg 08/08/24 14:37 Acetaminophen Tab 325 Mg Tab PO Q4HR PRN Fever and/or Mild Pain Dextrose/Water 25 ml 08/08/24 16:35 Dextrose 50% Syringe 50 Ml IVP PER PROTOCOL PRN Hypoglycemia Protocol Dextrose/Water 50 ml 08/08/24 16:35 Dextrose 50% Syringe 50 Ml IVP PER PROTOCOL PRN Hypoglycemia Protocol Heparin Sodium (Porcine) 0 unit 08/08/24 14:29 Heparin Sodium 1,000 Un/Ml (10ml Vl) IV PER PROTOCOL PRN Low PTT Protocol Heparin Sodium/Sodium Chloride 250 mls @ 19.595 mls/hr 08/08/24 14:30 08/09/24 05:47 25,000 unit/ Sodium Chloride IV 13 units/kg/hr .[id number] [facility] 14.152 mls/hr Titration Protocol 18 UNITS/KG/HR Insulin Aspart 0 unit 08/08/24 17:30 08/09/24 07:52 Insulin Aspart (Novolog) 100 Unit/Ml Vial SQ Not Given ACHS [facility] Protocol Naloxone HCl 0.2 mg 08/08/24 14:37 Naloxone 0.4 Mg/Ml 1 Ml Vial IV Q2M PRN Opioid Reversal Intake and Output 08/08/24 08/09/24 08/09/24 22:59 06:59 14:59 Intake Total 132.593 120.018 Balance 132.593 120.018 Intake: Intake, IV Titration 132.593 120.018 Amount Heparin Sod,Pork in 0.45% 132.593 120.018 NaCl 25,000 unit In 0.45 % NaCl 1 250ml.bag @ 18 UNITS/KG/HR 19.595 mls/hr IV .[id number] [facility] Rx#: [id number] 08/09/24 04:27 08/09/24 04:27
--- NOTE | 2024-08-09 09:27 | US ---
EXAMINATION TYPE: US venous doppler duplex LE BI DATE OF EXAM: 08/09/2024 9:13 AM COMPARISON: NONE CLINICAL INDICATION: Male, 79 years old with history of r/o DVT; Recent PE otherwise no relevant hist ory - patient denies signs and symptoms but states doctor noticed swelling in left foot, TECHNIQUE: The lower extremity deep venous system is examined utilizing real time linear array sonog lisa with graded compression, color doppler sonography, and spectral doppler. SIDE PERFORMED: Bilateral FINDINGS: VESSELS IMAGED: Common Femoral Vein Deep Femoral Vein Greater Saphenous Vein * Femoral Vein Popliteal Vein Small Saphenous Vein * Proximal Calf Veins (* superficial vessels) Right Leg: Negative for DVT, Color Doppler imaging shows patency of the vessels. Spectral waveforms are within normal limits. Left Leg: Positive for DVT within the common femoral proximal and distal left femoral, popliteal, ex ternal iliac veins. IMPRESSION: 1. Left lower extremity deep venous thrombosis extending from the popliteal veins to the external sherita ac vein. 2. No deep venous thrombosis right lower extremity [facility], , 08/09/2024 9:24 AM
--- NOTE | 2024-08-09 10:26 | P.PN ---
Subjective Progress Note Date: 08/09/24 Principal diagnosis: Acute pulmonary embolism This is a 79-year-old white male with history of nephrolithiasis, history of basal cell carcinoma of the nose, non-smoker, no known history of malignancy, no previous history of DVT or pulmonary embolism, patient has a very sedentary lifestyle, he was seen in the ER here back on 07/19/2024, patient was seen for upper abdominal discomfort and lower chest pain the pain was mostly more pronounced when he took a deep breath. Described by the ER physician as discomfort increased with deep breathing, patient was diagnosed as having mesenteric panniculitis with cough, discharged home and advised to follow-up with his primary care physician. Patient was discharged on Zithromax/in the form of Z-Didier. Patient did well for a while, but he came back to the ER today complaining of shortness of breath when he takes a deep breath and pleuritic chest pain. His shortness of breath has become much more pronounced compared to how he felt on the last ER visit. Patient denies any history of recent COVID-19 infection although in the ER note there was mention of recent diagnosis of COVID-19 infection but when the patient was asked about any recent history of COVID-19 infection, the patient clearly deniedCT angiogram of the chest showed bilateral pulmonary embolism involving the pulmonary arteries extending to the lobar segment, and subsegmental branches. CT also showed possible RV strain. Clinically however the patient is not in any distress, he is hemodynamically stable, and echocardiogram is pending. Patient is now on high intensity heparin, basically has no active pulmonary symptoms during my evaluation at rest, but again he did come in with dyspnea on exertion WBC count 13.9 hemoglobin 16.3 platelets are normal basic metabolic profile is normal D-dimer is elevated at 28.83, troponin is elevated at 0.556. Patient has elevated PSA of 13.4 noted from last year. And he normally sees urology for elevated PSA Patient was evaluated today on 08/09/2024, I saw this patient yesterday in consultation, patient just mated to the ICU early this morning, remains in no distress, relatively asymptomatic, nonetheless his echocardiogram showed right ventricular strain, moderate right ventricular dilatation, moderate pulmonary hypertension, right-sided pressures in the range of 50, patient was also found to have mobile right atrial thrombus. Patient is yet to be seen today by vascular surgery, being considered for interventionpossible thrombectomy. Clinically the patient is doing better than expected. WBC count is 11.4 hemoglobin 13.7 PTT is therapeutic at 82 electrolytes are normal renal profile is normal. Venous Doppler showed possible DVT within the left common femoral proximal and distal left femoral popliteal external iliac veins. On examination yesterday, left lower extremity was noted to be swollen, and there is asymmetric swelling in lower extremities left more swollen than right Objective - Vital Signs Vital signs: Vital Signs Temp 98.3 F 08/09/24 08:00 Pulse 86 08/09/24 10:00 Resp 21 08/09/24 10:00 BP 134/100 08/09/24 10:00 Pulse Ox 95 08/09/24 10:00 FiO2 Intake & Output 08/08/24 08/09/24 08/09/24 18:59 06:59 18:59 Intake Total 252.611 Balance 252.611 Weight 108.862 kg 108.862 kg Intake: Intake, IV Titration 252.611 Amount Heparin Sod,Pork in 0.45% 252.611 NaCl 25,000 unit In 0.45 % NaCl 1 250ml.bag @ 18 UNITS/KG/HR 19.595 mls/hr IV .[id number] [facility] Rx#: [id number] Other: Voiding Method External Catheter - Exam General: Revealed 79-year-old white male on room air, not in any distress on 2 L nasal cannula with O2 sats of 97% Skin: Skin is warm and dry and no rashes or lesions are noted. Eye: Pupils are equal, round and reactive to light, extra-ocular movements are intact; there is normal conjunctiva bilaterally. Ears, nose, mouth and throat: There are moist mucous membranes and no oral lesions. Neck: The neck is supple, there is no tenderness or JVD. Cardiovascular: There is a regular rate and rhythm. No murmur, rub or gallop is appreciated. Respiratory: Clear throughout no crackles rhonchi or wheezes Gastrointestinal: Soft, non-distended, non-tender abdomen without masses or organomegaly noted. There is no rebound or guarding present. Bowel sounds are unremarkable. Back: There is no tenderness to palpation in the midline. There is no obvious deformity. Musculoskeletal: Normal ROM, no tenderness, swelling of the left calf region is noted but no tenderness on palpation Neurological: CN II-XII intact, Cranial nerves III through XII are intact. Psychiatric: Normal mood, affect and normal mental status examination Skin: No rashes - Labs CBC & Chem 7: 08/09/24 04:27 08/09/24 04:27 Labs: Abnormal Lab Results - Last 24 Hours (Table) 08/08/24 08/08/24 08/08/24 Range/Units 12:59 12:59 12:59 WBC 13.9 H (3.8-10.6) k/uL Plt Count (150-450) k/uL Neutrophils # 12.0 H (1.3-7.7) k/uL APTT (22.0-30.0) sec D-Dimer 28.83 H (<0.60) mg/L FEU Chloride (98-107) mmol/L Glucose 154 H (74-99) mg/dL POC Glucose (mg/dL) (70-110) mg/dL Plasma Lactic Acid Berto (0.7-2.0) mmol/L Troponin I (0.000-0.034) ng/mL 08/08/24 08/08/24 08/08/24 Range/Units 12:59 12:59 17:07 WBC (3.8-10.6) k/uL Plt Count (150-450) k/uL Neutrophils # (1.3-7.7) k/uL APTT (22.0-30.0) sec D-Dimer (<0.60) mg/L FEU Chloride (98-107) mmol/L Glucose (74-99) mg/dL POC Glucose (mg/dL) (70-110) mg/dL Plasma Lactic Acid Berto 3.7 H* 2.5 H* (0.7-2.0) mmol/L Troponin I 0.556 H* (0.000-0.034) ng/mL 08/08/24 08/08/24 08/09/24 Range/Units 17:20 20:29 04:27 WBC 11.4 H (3.8-10.6) k/uL Plt Count 113 L (150-450) k/uL Neutrophils # 8.4 H (1.3-7.7) k/uL APTT 162.7 H* (22.0-30.0) sec D-Dimer (<0.60) mg/L FEU Chloride (98-107) mmol/L Glucose (74-99) mg/dL POC Glucose (mg/dL) 122 H (70-110) mg/dL Plasma Lactic Acid Berto (0.7-2.0) mmol/L Troponin I (0.000-0.034) ng/mL 08/09/24 08/09/24 Range/Units 04:27 04:27 WBC (3.8-10.6) k/uL Plt Count (150-450) k/uL Neutrophils # (1.3-7.7) k/uL APTT 82.1 H (22.0-30.0) sec D-Dimer (<0.60) mg/L FEU Chloride 110 H (98-107) mmol/L Glucose 106 H (74-99) mg/dL POC Glucose (mg/dL) (70-110) mg/dL Plasma Lactic Acid Berto (0.7-2.0) mmol/L Troponin I (0.000-0.034) ng/mL Assessment and Plan Assessment: Impression: Acute bilateral pulmonary embolism, with RV strain, and pulmonary hypertension as well as right atrial thrombus. Left lower extremity DVT History of nephrolithiasis History of elevated PSA, needs to be further evaluated on outpatient basis History of basal cell carcinoma of the skin Recommendation: Continue heparin Echocardiogram report was noted Admit patient to the cardiac floor Patient to be seen by vascular surgery for possible EKOS thrombolysis or thrombectomy In the meantime continue present supportive care measures, will continue to follow Time with Patient: Less than 30
--- NOTE | 2024-08-09 10:32 | P.PN ---
Subjective Progress Note Date: 08/09/24 Doing well today, no new complaints. Pending EKOS vs thrombectomy today. Placed on 2L O2 as of last night. HDS at the moment. Gen: In NAD, non-toxic HEENT: normocephalic, atraumatic, hearing acuity is intant, mucous membranes moist CVS: perfusing all extremities well, no pitting edema, Respiratory: symmetric chest expansion, no accessory muscle use, GI: soft, NTTP, ND, : no suprapubic tenderness, no CVA tenderness MSK/Derm: no rashes, cyanosis Neuro: CN II-XII intact, no motor weakness, Psych: cooperative, euthymic mood, judgment and insight is intact Hospital course: Patient is a 79-year-old male with no significant past medical history presents the ER with sudden onset shortness of breath starting this morning. 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 Labs and images: Chest CTA in the ER shows findings for segmental bilateral pulmonary embolus with right heart strain. EKG interpreted independently shows sinus tachycardia with S1Q3T3 pattern noted. MT interval is prolonged. Chest x-ray interpreted independently shows no acute cardiopulmonary process. Echocardiogram shows right atrial thrombus. LVEF 55 to 60% Laboratory evaluation in the ER shows WBC 13.9, D-dimer 28.83, lactic acid 3.7 and troponin I 0.556. Respiratory viral panel including COVID-19 is negative Assessment/Plan: Patient is a 79-year-old male with no significant past medical history presents the ER with sudden onset shortness of breath starting this morning. ED documentation reviewed and case discussed with ED provider. Patient is admitted to internal medicine service for submassive PE. #High risk submassive PE likely provoked in the setting of recent CT abdomen findings #Right heart strain #LLE DVT Patient experiencing sudden onset shortness of breath Chest CTA in the ER shows findings for segmental bilateral pulmonary embolus with right heart strain EKG sinus tachycardia with S1Q3T3 pattern Echocardiogram shows right atrial thrombus. LVEF 55 to 60%. WBC 13.9, D-dimer 28.83, lactic acid 3.7 and troponin I 0.556. Heart rate 110 Order heparin drip, monitor PTT for toxicity Consult cardiothoracic Consult pulmonology Consult cardiology Patient to be transferred to the ICU Consider EKOS procedure Continue cardiac monitoring Continue to monitor vital signs Order lipid panel CT abdomen 07/19/2024 that showed findings for mesenteric panniculitis with prominent mesenteric lymph nodes #Elevated leukocytosis likely reactive to above WBC 13.9 Monitor CBC #Hyperglycemia likely reactive to above Continue to monitor glucose levels Accu-Cheks and sliding scale insulin Check HbA1c DVT prophylaxis: Heparin drip The patient is admitted with an anticipated more than 2 midnight stay for evaluation of submassive PE CODE STATUS: Full code, is a surrogate decision-maker Discussed with: Patient Anticipated discharge place: Pending clinical course Objective - Vital Signs Vital signs: Vital Signs Temp 98.3 F 08/09/24 08:00 Pulse 86 08/09/24 10:00 Resp 21 08/09/24 10:00 BP 134/100 08/09/24 10:00 Pulse Ox 95 08/09/24 10:00 FiO2 Intake & Output 08/08/24 08/09/24 08/09/24 18:59 06:59 18:59 Intake Total 252.611 Balance 252.611 Weight 108.862 kg 108.862 kg Intake: Intake, IV Titration 252.611 Amount Heparin Sod,Pork in 0.45% 252.611 NaCl 25,000 unit In 0.45 % NaCl 1 250ml.bag @ 18 UNITS/KG/HR 19.595 mls/hr IV .[id number] [facility] Rx#: [id number] Other: Voiding Method External Catheter - Labs CBC & Chem 7: 08/09/24 04:27 08/09/24 04:27 Labs: Abnormal Lab Results - Last 24 Hours (Table) 08/08/24 08/08/24 08/08/24 Range/Units 12:59 12:59 12:59 WBC 13.9 H (3.8-10.6) k/uL Plt Count (150-450) k/uL Neutrophils # 12.0 H (1.3-7.7) k/uL APTT (22.0-30.0) sec D-Dimer 28.83 H (<0.60) mg/L FEU Chloride (98-107) mmol/L Glucose 154 H (74-99) mg/dL POC Glucose (mg/dL) (70-110) mg/dL Plasma Lactic Acid Berto (0.7-2.0) mmol/L Troponin I (0.000-0.034) ng/mL 08/08/24 08/08/24 08/08/24 Range/Units 12:59 12:59 17:07 WBC (3.8-10.6) k/uL Plt Count (150-450) k/uL Neutrophils # (1.3-7.7) k/uL APTT (22.0-30.0) sec D-Dimer (<0.60) mg/L FEU Chloride (98-107) mmol/L Glucose (74-99) mg/dL POC Glucose (mg/dL) (70-110) mg/dL Plasma Lactic Acid Berto 3.7 H* 2.5 H* (0.7-2.0) mmol/L Troponin I 0.556 H* (0.000-0.034) ng/mL 08/08/24 08/08/24 08/09/24 Range/Units 17:20 20:29 04:27 WBC 11.4 H (3.8-10.6) k/uL Plt Count 113 L (150-450) k/uL Neutrophils # 8.4 H (1.3-7.7) k/uL APTT 162.7 H* (22.0-30.0) sec D-Dimer (<0.60) mg/L FEU Chloride (98-107) mmol/L Glucose (74-99) mg/dL POC Glucose (mg/dL) 122 H (70-110) mg/dL Plasma Lactic Acid Berto (0.7-2.0) mmol/L Troponin I (0.000-0.034) ng/mL 08/09/24 08/09/24 Range/Units 04:27 04:27 WBC (3.8-10.6) k/uL Plt Count (150-450) k/uL Neutrophils # (1.3-7.7) k/uL APTT 82.1 H (22.0-30.0) sec D-Dimer (<0.60) mg/L FEU Chloride 110 H (98-107) mmol/L Glucose 106 H (74-99) mg/dL POC Glucose (mg/dL) (70-110) mg/dL Plasma Lactic Acid Berto (0.7-2.0) mmol/L Troponin I (0.000-0.034) ng/mL
[2024-08-09 12:43] LABS: LDL Cholesterol,Calculated 108.4 mg/dL (0.0-131.0)
[2024-08-09] MEDS: SODIUM CHLORIDE 0.9% 250 ML IV ONE (15:02)
[2024-08-09] MEDS: MIDAZOLAM 2 MG/2 ML VIAL IVP ONE (15:06)
[2024-08-09] MEDS: fentaNYL (PF) 50 MCG/1 ML VIAL IVP ONE (15:06)
[2024-08-09] MEDS: LIDOCAINE 1% INJ 10MG/ML (20 ML MDV) SQ ONE (15:11)
[2024-08-09] MEDS: HEPARIN SODIUM 1,000 UN/ML (10ML VL) IVP ONE (15:17)
[2024-08-09] MEDS: IOPAMIDOL-250 100ML BTL INTRAARTER ONE (15:58)
--- NOTE | 2024-08-09 16:32 | P.OP ---
Date of Procedure: 08/09/24 Preoperative Diagnosis: Acute bilateral pulmonary embolism with right heart strain Right atrial thrombus noted on echo Postoperative Diagnosis: Same Procedure(s) Performed: Ultrasound-guided right common femoral vein access Selective right pulmonary angiogram Selective left pulmonary angiogram Inari mechanical thrombectomy of the right main pulmonary artery, segmental branches and truncus anterior Inari mechanical thrombectomy of the left main pulmonary artery and segmental branches Inari mechanical thrombectomy of the right atrial thrombus Conscious sedation time 65 minutes Anesthesia: local Surgeon: Jeffery Mesa Estimated Blood Loss (ml): 200 Pathology: none sent Condition: stable Disposition: PACU Indications for Procedure: 79-year-old gentleman who originally presented to the ER secondary to shortness of breath. Patient states that he has been sedentary for the last several weeks and noticed some increased breathing issues and woke up yesterday with inability to take deep breaths. He denies any chest pain or pain in his lower extremities. He underwent CT scan in the ER demonstrating bilateral pulmonary embolism with right heart strain and elevated troponins. His echo was performed and demonstrated a right atrial thrombus as well as right heart strain and therefore he presents today for thrombectomy. Description of Procedure: After written and informed consent was obtained the patient all risks, benefits and competitions were described patient was brought to the Metal Forger'S Assistant laid in a supine position. The area of the groins were prepped and draped in usual sterile fashion. Utilizing ultrasound guidance the right common femoral vein was located and shown to be patent without thrombus and then was accessed with a micropuncture kit and utilizing Seldinger technique an 8-Cypriot sheath was placed. 035 guidewire was then advanced into the IVC under fluoroscopic guidance. Track was dilated and the Inari 24-Cypriot sheath was placed. A JR4 catheter was then placed and utilizing a J-wire the heart was entered and adva nced into the right pulmonary artery. The wire was then exchanged for an Amplatz wire in normal fashion. Patient was administered heparin at this time. A thrombectomy catheter was then advanced to the right atrial area and thrombectomy was initiated with minimal thrombus removed. The catheter was then advanced to the pulmonary artery and pulmonary angiogram was obtained demonstrating thrombus within the right main and segmental branches as well as the left main and segmental branches. Mechanical thrombectomy was then performed with aspiration of multiple large clots. Aspiration was performed 7 times. Right pulmonary angiogram was then obtained demonstrating resolution of thrombus within the main pulmonary artery as well as the truncus anterior. Catheter was then selectively placed in the left main pulmonary artery and mechanical thrombectomy was performed 6 times with the 24 Cypriot as well as the curved 20 Cypriot catheter. After each thrombectomy blood was returned utilizing the flow saver device. Pulmonary angiogram was then obtained demonstrating complete resolution of thrombus with good filling to the outer aspects of the long on both sides. Due to history of atrial thrombus again on the way out thrombectomy was performed. Once completed all catheters and wires were removed. A suture was placed in the right groin after the sheath was removed for hemostasis. Patient tolerated procedure well and was sent to recovery.
[2024-08-09 19:53] LABS: Glucose,Whole Blood 116 mg/dL (70-110)
[2024-08-10 06:39] LABS: Glucose,Whole Blood 87 mg/dL (70-110)
[2024-08-10 06:41] LABS: HCT 40.6 % (39.0-53.0); HGB 13.3 gm/dL (13.0-17.5); MCH 31.3 pg (25.0-35.0); MCHC 32.8 g/dL (31.0-37.0); MCV 95.3 fL (80.0-100.0); Mean Platelet Volume 9.4; RBC 4.26 m/uL (4.30-5.90); RDW 13.6 % (11.5-15.5); WBC 6.9 k/uL (3.8-10.6)
[2024-08-10 07:27] LABS: African American GFR (CKD) >90 (>60 ml/min/1.73 sqM); Anion Gap 7 mmol/L; Blood Urea Nitrogen 16 mg/dL (9-20); Calcium 8.3 mg/dL (8.4-10.2); Carbon Dioxide 22 mmol/L (22-30); Chloride 111 mmol/L (98-107); Glucose 88 mg/dL (74-99); Non-African American GFR(CKD) 88 (>60 ml/min/1.73 sqM); Sodium 140 mmol/L (137-145)
[2024-08-10 07:41] LABS: Platelet Count 97 k/uL (150-450)
--- NOTE | 2024-08-10 08:30 | IR ---
EXAMINATION TYPE: IR transcath embolizat therapy DATE OF EXAM: 08/09/2024 4:39 PM COMPARISON: Pre Operative Images if available both CT/MRI or plain film CLINICAL INDICATION: Male, 79 years old with history of Saddle PE, 18.2m/70.2DAP, rt gr suture of pun cture site.; TECHNIQUE: IR transcath embolizat therapy, multiple fluoroscopic images provided for procedure. Total fluoroscopy time: 18.2 minutes Total submitted images to PACS: 79 DAP: 70.2 mGym2 Gycm2 uGym2 cGycm2 or equivalent. FINDINGS: IMPRESSION: 1. Report was generated for administrative purposes only. 2. Please see the operative/procedural note for further details. [facility], , 08/10/2024 8:28 AM
[2024-08-10] MEDS ORDERED: Apixaban Initiation Dose--VTE 5 MG TAB PO SCH (09:15)
[2024-08-10] MEDS: Apixaban Initiation Dose--VTE 5 MG TAB PO SCH (09:44)
--- NOTE | 2024-08-10 10:29 | P.PN ---
Subjective Progress Note Date: 08/10/24 Principal diagnosis: Bilateral pulmonary emboli, left lower extremity DVT Patient seen and examined today as a follow-up. He is in the ICU status post Inari mechanical thrombectomy of right and left pulmonary arteries as well as right atrial thrombus. Today he states his breathing is easier. Still has some minor shortness of breath, denies any chest pain. He is on room air with oxygen saturation at 97%. Denies any pain in his lower extremities. Objective - Vital Signs Vital signs: Vital Signs Temp 97.7 F 08/10/24 04:00 Pulse 77 08/10/24 07:00 Resp 22 08/10/24 07:00 BP 132/90 08/10/24 07:00 Pulse Ox 96 08/10/24 07:00 FiO2 Intake & Output 08/09/24 08/10/24 08/10/24 18:59 06:59 18:59 Intake Total 400 214.893 Output Total 300 600 0 Balance 100 -385.107 0 Weight 108.862 kg 108 kg Intake: IV 100 Intake, IV Titration 214.893 Amount Heparin Sod,Pork in 0.45% 214.893 NaCl 25,000 unit In 0.45 % NaCl 1 250ml.bag @ 18 UNITS/KG/HR 19.595 mls/hr IV .[id number] [facility] Rx#: [id number] Oral 300 Output: Urine 300 600 0 Other: Voiding Method External Catheter External Catheter # Bowel Movements 1 2 - Exam General appearance: The patient is alert, oriented, appears in no acute distress. HET: Head is normocephalic and atraumatic. Neck: Supple. Heart: Regular. Lungs: Equal expansion, normal respiratory effort. Abdomen: Soft, nontender, nondistended. Extremities: Normal skin color and turgor. Right groin with suture intact, no hematoma or bleeding noted. Palpable DP pulses. Neurological: No focal deficits. Strength and sensation are grossly intact. - Labs CBC & Chem 7: 08/10/24 05:58 08/10/24 05:58 Labs: Abnormal Lab Results - Last 24 Hours (Table) 08/09/24 08/09/24 08/10/24 Range/Units 11:50 19:51 05:58 RBC (4.30-5.90) m/uL Plt Count (150-450) k/uL APTT 58.8 H 49.3 H (22.0-30.0) sec Chloride (98-107) mmol/L POC Glucose (mg/dL) 116 H (70-110) mg/dL Calcium (8.4-10.2) mg/dL 08/10/24 08/10/24 Range/Units 05:58 05:58 RBC 4.26 L (4.30-5.90) m/uL Plt Count 97 L (150-450) k/uL APTT (22.0-30.0) sec Chloride 111 H (98-107) mmol/L POC Glucose (mg/dL) (70-110) mg/dL Calcium 8.3 L (8.4-10.2) mg/dL Assessment and Plan Assessment: 1. Acute bilateral pulmonary embolism with right heart strain status post Inari mechanical thrombectomy 2. Right atrial thrombus status post Inari mechanical thrombectomy 3. Acute left lower extremity deep venous thrombosis Plan: 1. May discontinue heparin drip and start Eliquis 10 mg twice daily, then taper as prescribed 2. Recommend anticoagulation for 6 months 3. Right groin suture removed 4. Follow-up with vascular surgery in 2 to 4 weeks. Discharge instructions reviewed with patient. Thank you for this consultation, patient is cleared from vascular surgery for discharge. The impression and plan of care has been dictated as directed. I performed a history and examination of this patient, discussed the same with the dictator. I agree with the dictator's note ,documented as a scribe. Any additional findings or plans will be noted.
--- NOTE | 2024-08-10 10:46 | P.PN ---
Subjective Progress Note Date: 08/10/24 Patient is a 79-year-old male with a nonsignificant past medical history and a sedentary lifestyle presented to the emergency department with sudden onset shortness of breath. He described feeling as chest tightness due to being unable to take a deep breath. He had no alleviating or exacerbating factors. He has never experienced this type of shortness of breath before. He notes a recent emergency department visit for upper abdominal pain and discomfort with deep breathing and was discharged with a Z-Didier. He denies any recent travel history or current malignancy. He denies history of DVT, pulmonary embolism, or blood clotting disorders. He denies recent respiratory infections, such as COVID 19. He endorses lifetime non-smoking and drinks socially. He is independently ambulatory at home but does endorse a sedentary lifestyle. Chest CTA in the ED showed bilateral pulmonary embolus involving the pulmonary arteries extending into the segmental lobar, segmental and subsegmental branches with evidence of right heart strain. Initial EKG was consistent with sinus tachycardia and S1Q3T3 pattern noted. Chest x-ray showed no acute pulmonary process. Echocardiogram showed normal left ventricular size and systolic function, dilated right ventricle with global hypokinesis sparing the apex and moderate pulmonary hypertension, echogenic area in the right atrium consistent with thrombus measuring up to 3.2 cm, moderate tricuspid and mild mitral regurgitation. His initial labs in the ED showed WBCs 13.9, D-dimer 28.83, lactic acid 3.7, and troponin 0.556. 08/10/2024. Patient is seen and examined at bedside as a follow-up status post thrombectomy day 1. He had an ultrasound venous Doppler duplex bilateral lower extremities yesterday that showed right leg negative for DVT and left leg positive for DVT within the common femoral proximal and distal left femoral, popliteal, and external iliac veins. He is saturating 97% on room air. He has no significant complaints today. Objective - Vital Signs Vital signs: Vital Signs Temp 97.7 F 08/10/24 04:00 Pulse 77 08/10/24 07:00 Resp 22 08/10/24 07:00 BP 132/90 08/10/24 07:00 Pulse Ox 96 08/10/24 07:00 FiO2 Intake & Output 08/09/24 08/10/24 08/10/24 18:59 06:59 18:59 Intake Total 400 214.893 Output Total 300 600 0 Balance 100 -385.107 0 Weight 108.862 kg 108 kg Intake: IV 100 Intake, IV Titration 214.893 Amount Heparin Sod,Pork in 0.45% 214.893 NaCl 25,000 unit In 0.45 % NaCl 1 250ml.bag @ 18 UNITS/KG/HR 19.595 mls/hr IV .[id number] [facility] Rx#: [id number] Oral 300 Output: Urine 300 600 0 Other: Voiding Method External Catheter External Catheter # Bowel Movements 1 2 - Exam Vital signs are stable. General: No acute distress. AOx4. HEENT: Head exam is unremarkable. EOMI bilaterally. ACs patent. Nares patent. Lungs: Bilateral breath sounds present; no rhonchi, wheezes, or rales. Heart: Rate and rhythm are regular. S1-S2 present. No murmur/rub/gallops. Abdomen: Soft, nontender, nondistended. Bowel sounds present. Extremities: No edema present. Symmetric movement. Psych: Normal affect and mood. Cooperative. - Labs CBC & Chem 7: 08/10/24 05:58 08/10/24 05:58 Labs: Abnormal Lab Results - Last 24 Hours (Table) 08/09/24 08/09/24 08/10/24 Range/Units 11:50 19:51 05:58 RBC (4.30-5.90) m/uL APTT 58.8 H 49.3 H (22.0-30.0) sec Chloride (98-107) mmol/L POC Glucose (mg/dL) 116 H (70-110) mg/dL Calcium (8.4-10.2) mg/dL 08/10/24 08/10/24 Range/Units 05:58 05:58 RBC 4.26 L (4.30-5.90) m/uL APTT (22.0-30.0) sec Chloride 111 H (98-107) mmol/L POC Glucose (mg/dL) (70-110) mg/dL Calcium 8.3 L (8.4-10.2) mg/dL Assessment and Plan Assessment: Submassive bilateral pulmonary embolism, post thrombectomy day 1. Right heart strain. Left lower extremity DVT. Lactic acidosis. Resolved. Leukocytosis, likely reactive. Resolved. Hyperglycemia, likely reactive. Resolved. Plan: Begin Eliquis 10 mg twice daily. Discontinue heparin. Monitor hemodynamics. Monitor O2 saturation. Recommend that patient see a welder/fabricator as an patient for further workup. Can consider downgrading patient.
--- NOTE | 2024-08-10 14:20 | P.DS ---
Providers Date of admission: 08/08/24 14:39 Attending physician: Raymond Lewis MD Consults: 08/08/24 14:37 Consult Physician Urgent Consulting Provider: Jeffery Mesa Consult Reason/Comments: B/L PE Do you want consulting provider notified?: Already Contacted Consult Physician Urgent Consulting Provider: Ben Teixeira Consult Reason/Comments: B/L PE Do you want consulting provider notified?: Already Contacted 08/08/24 15:43 Consult Physician Urgent Consulting Provider: Adriana Prince Consult Reason/Comments: trop elevated, right atrial clot Do you want consulting provider notified?: Already Contacted Primary care physician: [place] Hospital Course: Patient is a 79-year-old male with no significant past medical history presents the ER with sudden onset shortness of breath starting this morning. Patient states that he was at home and was going to the restroom when he suddenly felt short of breath. Patient describes that he could not take deep breaths and had to sit down to make himself feel better. No alleviating and exacerbating factors. However he continued to feel short of breath associated with some chest tightness as well as nausea which prompted him to call 911 and come to the ER for further assessment. Patient denies history of pulmonary embolism, DVT, blood clot disorders, recent hospitalization or recent travel. Patient denies any recent respiratory tract infection such as COVID-19 or vaccination. Denies any pain in the legs however does admit to have mild swelling in left leg. Denies any history of CAD and or CVA. He is a lifetime non-smoker and drinks socially and denies any use of illicit drug. Patient admits to live a sedentary lifestyle however he is ambulatory at home and is independent in his ADLs. He had a recent ER visit on 07/19/2024 regarding abdominal discomfort where he had a CT abdomen that showed findings for mesenteric panniculitis with prominent mesenteric lymph nodes. On physical exam had 2+ left lower extremity pitting edema. Chest CT angio in the emergency room showed bilateral pulmonary embolus involving pulmonary arteries extending to the segment lobar, segmental and subsegmental branches with evidence of right heart strain. Echocardiogram showed left ventricular ejection fraction 55 to 60% and a right atrial thrombus was found. Initial EKG had sinus tachycardia with S1Q3T3 pattern. WBC elevated at 13.9, D-dimer 28.83, lactic acid 3.7, troponin 0.556 and glucose elevated at 154. Patient diagnosed high risk submassive PE likely provoked and was admitted to the ICU and placed on IV heparin. PTT elevated at 162.7 initially but decreased to 49.3 at 08/10. Venous Doppler showed left lower extremity DVT extending from popliteal veins to external iliac vein. Pulmonology, cardiology and vascular surgery consulted and mechanical thrombectomy of the right main pulmonary artery, left main pulmonary artery and segmental branches and right atrial thrombus done. Patient had improved symptoms and no new complaints or symptoms after the surgery. Elevated leukocytosis was likely reactive and decreased to 6.9 on 08/10. Hyperglycemia was managed with insulin sliding scale glucose Accu-Cheks. A1c 5.2. Today, vascular surgery is cleared patient for discharge. Will send him home with apixaban starter pack for VTE and advised to follow-up with pulmonology, cardiology and vascular surgery on outpatient basis. Physical examination: General: non toxic, no distress Head: atraumatic, normocephalic, symmetric Mouth: no lip lesion, mucus membranes moist Cardiovascular: S1S2 reg, no murmur Lungs: CTA bilateral, no rhonchi, no rales, no accessory muscle use Abdominal: soft, nondistended, nontender to palpation, no guarding Ext: no gross muscle atrophy, no contractures, positive dorsalis pedis pulse bilateral, no extremity edema Neuro: no gross focal neuro deficits Psych: Alert and oriented x3, appropriate affect and mood I saw and evaluated the patient during the atwood and critical portions of this encounter, and discussed the case in detail with the resident author of this note, I agree with the Assessment and Plan, and my changes, if any, are highlighted in blue. Assessment: # High risk submassive PE likely provoked in the setting of recent CT abdomen findings, s/p mechanical thrombectomy # Right heart strain, improved # Acute left lower extremity DVT, on apixaban # Recitve leukocytosis, resolved # Reactive hyperglycemia, resolved Patient Condition at Discharge: Stable Plan - Discharge Summary Discharge Rx Participant: Yes New Discharge Prescriptions: New Acetaminophen Tab [Tylenol] 650 mg PO Q4HR PRN tab PRN Reason: Fever And/Or Mild Pain Apixaban [Eliquis Starter Pack (for VTE)] 5 - 10 mg PO DIRECTED 30 Days #1 each Discharge Medication List Acetaminophen Tab [Tylenol] 650 mg PO Q4HR PRN tab 08/10/24 [Rx] Apixaban [Eliquis Starter Pack (for VTE)] 5 - 10 mg PO DIRECTED 30 Days #1 each 08/10/24 [Rx] Follow up Appointment(s)/Referral(s): Ben Teixeira MD [STAFF PHYSICIAN] - 1 Week Jeffery Mesa DO [STAFF PHYSICIAN] - 3 Weeks [facility] [Primary Care Provider] - 1-2 days Activity/Diet/Wound Care/Special Instructions: No driving for three days. Avoid heavy lifting greater than 10 lbs , pushing, pulling, straining, flights of stairs for seven days. ok to shower tomorrow but no baths, pools, soaking in tubs for seven days to avoid risk of infection. signs of infection ie: fever, rash, drainage from puncture site, swelling contact doctor or return to ER immediately. Heavy bleeding from puncture site apply firm direct pressure and return to ER. Do not attempt to drive self. low sodium/low fat diet Discharge Disposition: HOME SELF-CARE
[2024-08-10 19:48] VITALS: BP 110/90; PULSE 87; RESP 30; TEMP 98
== END 2024-08-10 12:50 | disposition home or self-care (01) | DRG 164 ==
LOC: EC 12:34 → 2SICU 14:39 → 3SCARD 14:49 → 2SICU 15:51
PROVIDERS: ADMIT Internal Medicine; ATTEND Internal Medicine
PROC: B31S1ZZ Fluoroscopy of Right Pulmonary Artery using Low Osmolar Contrast (ICD-10-PCS; 2024-08-09)
PROC: 02CP3ZZ Extirpation of Matter from Pulmonary Trunk, Percutaneous Approach (ICD-10-PCS; principal; 2024-08-09 14:36)
PROC: 02CR3ZZ Extirpation of Matter from Left Pulmonary Artery, Percutaneous Approach (ICD-10-PCS; 2024-08-09 14:36)
PROC: 02CQ3ZZ Extirpation of Matter from Right Pulmonary Artery, Percutaneous Approach (ICD-10-PCS; 2024-08-09 14:36)
PROC: 02C63ZZ Extirpation of Matter from Right Atrium, Percutaneous Approach (ICD-10-PCS; 2024-08-09 14:36)
PROC: B31T1ZZ Fluoroscopy of Left Pulmonary Artery using Low Osmolar Contrast (ICD-10-PCS; 2024-08-09 14:36)
DX: I26.99 Other pulmonary embolism without acute cor pulmonale (principal); E87.20 Acidosis, unspecified; I82.432 Acute embolism and thrombosis of left popliteal vein; I82.422 Acute embolism and thrombosis of left iliac vein; K65.4 Sclerosing mesenteritis; I51.3 Intracardiac thrombosis, not elsewhere classified; I27.20 Pulmonary hypertension, unspecified; R73.9 Hyperglycemia, unspecified; Z85.828 Personal history of other malignant neoplasm of skin; Z88.0 Allergy status to penicillin
CPT/HCPCS: 36415; 37184; 37185; 71046; 71275; 75743; 76937; 80048; 80053; 80061; 83036; 83605; 83735; 84484; 85025; 85027; 85379; 85610; 85730; 87636; 93005; 93306; 93970; 96361; 96365; 96366; 99291

== ENCOUNTER 2025-02-11 14:29 | Inpatient (IN) | payer OTHER ==
--- NOTE | 2025-02-11 14:55 | ED ---
Fall HPI - General Chief Complaint: Fall Stated Complaint: R hip injury Time Seen by Provider: 02/11/25 14:34 Source: patient, EMS Mode of arrival: EMS - History of Present Illness Initial Comments: This patient is a 79-year-old who arrives by ambulance to have evaluation of right hip pain. Patient states he was in his driveway and he slipped on mud or something. The patient states that he was not able to get up due to right hip pain. When he moved his right leg there was severe pain. He states that a neighbor called the ambulance and he was brought here. He denies other injuries. Patient has no head, neck, chest, back or abdominal pain. He did not lose consciousness. The patient does take Eliquis. Complaint: fall -: minutes(s) Fall From: standing When Fall Occurred: just prior to arrival Fall Witnessed: yes, by bystander Place Fall Occurred: street Loss of Consciousness: none Prolonged Down Time?: no Symptoms Prior to Fall: none Location - Extremities: Right: Thigh Severity: severe Quality: sharp Context: tripped/slipped Associated Symptoms: denies - Related Data Home Medications Medication Instructions Recorded Confirmed Apixaban [Eliquis] 5 mg PO BID@1000,2200 02/11/25 02/11/25 Cholecalciferol [Vitamin D3 (25 50 mcg PO W/BRKFST 02/11/25 02/11/25 Mcg = 1000 Iu)] Magnesium Oxide [Mag-Oxide] 200 mg PO W/BRKFST 02/11/25 02/11/25 Milk Thistle 150 mg PO W/BRKFST 02/11/25 02/11/25 Multivitamins, Thera [Multivitamin 1 tab PO W/BRKFST 02/11/25 02/11/25 (formulary)] Nitric Oxide 1 tab PO W/BRKFST 02/11/25 02/11/25 Sawyer-3/Dha/Epa/Fish Oil [Fish Oil 1 cap PO W/BRKFST 02/11/25 02/11/25 1,000 mg Softgel] Previous Rx's Medication Instructions Recorded HYDROcodone/APAP 5-325MG [[place] 1 - 2 tab PO Q6HR PRN #32 tab 02/13/25 5-325] Sennosides [Senokot] 2 tab PO DAILY PRN #60 tablet 02/13/25 Allergies Allergy/AdvReac Type Severity Reaction Status Date / Time Penicillins Allergy Rash/Hives Verified 02/12/25 15:10 Review of Systems ROS Statement: Those systems with pertinent positive or pertinent negative responses have been documented in the HPI. ROS Other: All systems not noted in ROS Statement are negative. Constitutional: Denies: fever, chills, weakness Eyes: Denies: vision change Respiratory: Denies: cough, dyspnea Cardiovascular: Denies: chest pain, palpitations, syncope Gastrointestinal: Denies: abdominal pain, nausea, vomiting Genitourinary: Denies: dysuria, hematuria Musculoskeletal: Reports: as per HPI, arthralgia. Denies: back pain Skin: Denies: rash Neurological: Denies: headache, weakness, numbness Past Medical History Additional Past Medical History / Comment(s): Kidney stones History of Any Multi-Drug Resistant Organisms: None Reported Past Surgical History: Cholecystectomy, Hernia Repair Past Psychological History: No Psychological Hx Reported Smoking Status: Never smoker Past Alcohol Use History: None Reported Past Drug Use History: None Reported General Exam Limitations: no limitations General appearance: alert, in no apparent distress Head exam: Present: atraumatic, normocephalic Eye exam: Present: normal appearance. Absent: scleral icterus, conjunctival injection ENT exam: Present: normal oropharynx Neck exam: Present: normal inspection Respiratory exam: Present: normal lung sounds bilaterally. Absent: respiratory distress, wheezes, rales, rhonchi, stridor, chest wall tenderness, accessory muscle use Cardiovascular Exam: Present: regular rate, normal rhythm, normal heart sounds. Absent: systolic murmur, diastolic murmur, rubs, gallop GI/Abdominal exam: Present: soft. Absent: distended, tenderness, guarding, rebound, rigid, mass Extremities exam: Present: tenderness, normal capillary refill. Absent: full ROM, pedal edema, calf tenderness Right Hip exam: Present: tenderness, deformity, internal rotation, shortening. Absent: full ROM, swelling, abrasion, laceration, ecchymosis, dislocation Upper Leg exam: Present: normal inspection. Absent: tenderness, swelling Knee exam: Present: normal inspection, full ROM. Absent: tenderness, swelling Lower Leg exam: Present: normal inspection, full ROM. Absent: tenderness, swelling Ankle exam: Present: normal inspection, full ROM. Absent: tenderness, swelling Foot/Toe exam: Present: normal inspection, full ROM. Absent: tenderness, swelling Neurovascular tendon exam: Present: no vascular compromise. Absent: pulse deficit, abnormal cap refill, motor deficit, sensory deficit Back exam: Present: normal inspection. Absent: vertebral tenderness Neurological exam: Present: alert, oriented X3, CN II-XII intact. Absent: motor sensory deficit Skin exam: Present: warm, dry, intact, normal color. Absent: rash Course Vital Signs 02/11/25 02/11/25 14:37 19:05 Temperature 99.1 F Pulse Rate 98 114 H Respiratory 17 18 Rate Blood Pressure 171/100 139/91 O2 Sat by Pulse 98 96 Oximetry Medical Decision Making - Medical Decision Making The patient had hip and pelvis x-rays that I interpreted as showing right sided intertrochanteric hip fracture The patient had chest x-ray that I interpreted as negative for acute bony injury, pneumothorax, infiltrate. Given that patient has distracting injury and is on Eliquis, will be going to OR, he is sent for CT scan of the brain that I interpreted as negative for acute bony injury, negative for acute intracranial hemorrhage, mass effect or midline shift. Was pt. sent in by a medical professional or institution (, PA, COMMERCIAL CONSTRUCTION SUPERINTENDENT, urgent care, hospital, or long-term...) When possible be specific @ -[No] Did you speak to anyone other than the patient for history (EMS, parent, family, police, friend...)? What history was obtained from this source @ -[No] Did you review nursing and triage notes (agree or disagree)? Why? @ -[I reviewed and agree with nursing and triage notes] Were old charts reviewed (outside hosp., previous admission, EMS record, old EKG, old radiological studies, urgent care reports/EKG's, long-term records)? Report findings @ -[No old charts were reviewed] Differential Diagnosis (chest pain, altered mental status, abdominal pain women, abdominal pain men, vaginal bleeding, weakness, fever, dyspnea, syncope, headache, dizziness, GI bleed, back pain, seizure, CVA, palpatations, mental health, musculoskeletal)? @ -[Differential Musculoskeletal Muscular strain, contusion, ligament sprain, fracture, arthritis, septic arthritis, bursitis, cellulitis, muscle spasm, nerve compression, DVT, arterial occlusion, herpes zoster, electrolyte abnormality, tumor.... This is not meant to be in all inclusive list EKG interpreted by me (3pts min.). @ -[I interpreted as above] X-rays interpreted by me (1pt min.). @ -[I interpreted as above CT interpreted by me (1pt min.). @ -[I interpreted as above U/S interpreted by me (1pt. min.). @ -[None done] What testing was considered but not performed or refused? (CT, X-rays, U/S, labs)? Why? @ -[None] What meds were considered but not given or refused? Why? @ -[None] Did you discuss the management of the patient with other professionals (professionals i.e. , PA, COMMERCIAL CONSTRUCTION SUPERINTENDENT, lab, RT, psych nurse, criminal justice social worker, heavy duty mechanic farm equipment, teacher, disciplinary hearing officer, onsite case manager)? Give summary @ -[Case discussed with admitting physician and treatment recommendations incorporated Was smoking cessation discussed for >3mins.? @ -[No] Was critical care preformed (if so, how long)? @ -[No] Were there social determinants of health that impacted care today? How? (Homelessness, low income, unemployed, alcoholism, drug addiction, transportation, low edu. Level, literacy, decrease access to med. care, senior care, rehab)? @ -[No] Was there de-escalation of care discussed even if they declined (Discuss DNR or withdrawal of care, Hospice)? DNR status @ -[No] What co-morbidities impacted this encounter? (DM, HTN, Smoking, COPD, CAD, Cancer, CVA, ARF, Chemo, Hep., AIDS, mental health diagnosis, sleep apnea, morbid obesity)? @ -[None] Was patient admitted / discharged? Hospital course, mention meds given and route, prescriptions, significant lab abnormalities, going to OR and other pertinent info. @ -[Patient is a 79-year-old man here to have evaluation after fall. The studies do reveal patient has hip fracture and the patient will be admitted, see the above note. Undiagnosed new problem with uncertain prognosis? @ -[No] Drug Therapy requiring intensive monitoring for toxicity (Heparin, Nitro, Insulin, Cardizem)? @ -[No] Were any procedures done? @ -[No] Diagnosis/symptom? @ -[Acute fall injury Acute hip fracture Acute, or Chronic, or Acute on Chronic? @ -[Acute Uncomplicated (without systemic symptoms) or Complicated (systemic symptoms)? @ -[Uncomplicated Side effects of treatment? @ -[No] Exacerbation, Progression, or Severe Exacerbation? @ -[No] Poses a threat to life or bodily function? How? (Chest pain, [place], [place], pneumonia, PE, COPD, DKA, ARF, appy, cholecystitis, CVA, Diverticulitis, Homicidal, Suicidal, threat to staff... and all critical care pts) @ -[Yes requires orthopedic surgery intervention or there will be loss of lower extremity function All treatments are based on ideal body weight as in ED triage - Lab Data Result diagrams: 02/13/25 04:08 02/13/25 04:08 Lab Results 02/11/25 02/11/25 02/11/25 Range/Units 15:50 15:50 15:50 WBC 9.49 (4.50-10.00) 10*3/uL RBC 4.62 (4.40-5.60) 10*6/uL Hgb 14.4 (13.0-17.0) g/dL Hct 43.2 (39.6-50.0) % MCV 93.5 (80.0-97.0) fL MCH 31.2 (27.0-32.0) pg MCHC 33.3 (32.0-37.0) g/dL Plt Count 144 (140-440) 10*3/uL MPV 10.0 (9.5-12.2) fL Immature Gran % (Auto) 0.8 % Neutrophils % 83.7 % Lymphocytes % 8.5 % Monocytes % 6.5 % Eosinophils % 0.3 % Basophils % 0.2 % Immature Gran # 0.08 H (0.00-0.04) 10*3/uL Neutrophils # 7.93 H (1.80-7.70) 10*3/uL Lymphocytes # 0.81 L (0.90-5.00) 10*3/uL Monocytes # 0.62 (0.20-1.00) 10*3/uL Eosinophils # 0.03 L (0.04-0.35) 10*3/uL Basophils # 0.02 (0.00-0.10) 10*3/uL PT 10.6 (10.0-12.5) sec INR 0.9 (<1.2) APTT 23.1 (22.0-30.0) sec Sodium 139 (137-145) mmol/L Potassium 4.3 (3.5-5.1) mmol/L Chloride 105 (98-107) mmol/L Carbon Dioxide 26 (22-30) mmol/L Anion Gap 8 mmol/L BUN 15 (9-20) mg/dL Creatinine 0.83 (0.66-1.25) mg/dL Est GFR (CKD-EPI)AfAm >90 (>60 ml/min/1.73 sqM) Est GFR (CKD-EPI)NonAf 84 (>60 ml/min/1.73 sqM) Glucose 136 H (74-99) mg/dL Calcium 9.3 (8.4-10.2) mg/dL Total Bilirubin 0.5 (0.2-1.3) mg/dL AST 30 (17-59) U/L ALT 29 (4-49) U/L Alkaline Phosphatase 41 (38-126) U/L Total Protein 6.7 (6.3-8.2) g/dL Albumin 3.9 (3.5-5.0) g/dL Blood Type Confirm 02/11/25 Range/Units 15:50 WBC (4.50-10.00) 10*3/uL RBC (4.40-5.60) 10*6/uL Hgb (13.0-17.0) g/dL Hct (39.6-50.0) % MCV (80.0-97.0) fL MCH (27.0-32.0) pg MCHC (32.0-37.0) g/dL Plt Count (140-440) 10*3/uL MPV (9.5-12.2) fL Immature Gran % (Auto) % Neutrophils % % Lymphocytes % % Monocytes % % Eosinophils % % Basophils % % Immature Gran # (0.00-0.04) 10*3/uL Neutrophils # (1.80-7.70) 10*3/uL Lymphocytes # (0.90-5.00) 10*3/uL Monocytes # (0.20-1.00) 10*3/uL Eosinophils # (0.04-0.35) 10*3/uL Basophils # (0.00-0.10) 10*3/uL PT (10.0-12.5) sec INR (<1.2) APTT (22.0-30.0) sec Sodium (137-145) mmol/L Potassium (3.5-5.1) mmol/L Chloride (98-107) mmol/L Carbon Dioxide (22-30) mmol/L Anion Gap mmol/L BUN (9-20) mg/dL Creatinine (0.66-1.25) mg/dL Est GFR (CKD-EPI)AfAm (>60 ml/min/1.73 sqM) Est GFR (CKD-EPI)NonAf (>60 ml/min/1.73 sqM) Glucose (74-99) mg/dL Calcium (8.4-10.2) mg/dL Total Bilirubin (0.2-1.3) mg/dL AST (17-59) U/L ALT (4-49) U/L Alkaline Phosphatase (38-126) U/L Total Protein (6.3-8.2) g/dL Albumin (3.5-5.0) g/dL Blood Type Confirm O Negative - EKG Data -: EKG Interpreted by In EKG shows normal: sinus rhythm, axis (Normal), intervals (MN interval is 217 ms, prolonged consistent with first-degree AV block. QRS duration 94 ms QTc 393 ms, both normal), QRS complexes (Normal) Rate: normal (Rate 96 bpm) Disposition Clinical Impression: Fall, Hip fracture Disposition: HOME SELF-CARE Condition: Fair Is patient prescribed a controlled substance at d/c from ED?: No
--- NOTE | 2025-02-11 15:21 | XR ---
EXAMINATION TYPE: XR chest 1V DATE OF EXAM: 02/11/2025 COMPARISON: CTA chest August 08, 2024 CLINICAL INDICATION: Male, 79 years old with history of FALL; pain TECHNIQUE: Single frontal view of the chest is obtained. FINDINGS: There is no suspicious focal air space opacity, pleural effusion, or pneumothorax seen. Mi ld cardiomegaly is present. The osseous structures are intact. IMPRESSION: Mild cardiomegaly without acute pulmonary process. [facility], , 02/11/2025 3:19 PM
--- NOTE | 2025-02-11 15:24 | XR ---
EXAMINATION TYPE: XR pelvis AP view, XR femur RT DATE OF EXAM: 02/11/2025 CLINICAL INDICATION: Male, 79 years old with history of fall injury, pain TECHNIQUE: A single AP view of the pelvis is obtained. 2 views right femur. COMPARISON: CT abdomen and pelvis July 19, 2024. FINDINGS: There is acute impacted basicervical fracture through the femoral neck of the right hip. N o hip joint dislocation. No additional acute displaced fracture in the pelvis or remainder of the fem ur. Scattered tiny bilateral pelvic phleboliths are seen. Zhug-[id number]-hcokkoiz axial joint space loss of both hips is present. IMPRESSION: As above. [facility], , 02/11/2025 3:21 PM
[2025-02-11 15:57] LABS: Basophils # (A) 0.02 10*3/uL (0.00-0.10); Basophils % (A) 0.2 %; Eosinophils # (A) 0.03 10*3/uL (0.04-0.35); Eosinophils % (A) 0.3 %; HCT 43.2 % (39.6-50.0); HGB 14.4 g/dL (13.0-17.0); Lymphocytes # (A) 0.81 10*3/uL (0.90-5.00); Lymphocytes % (A) 8.5 %; MCH 31.2 pg (27.0-32.0); MCHC 33.3 g/dL (32.0-37.0); MCV 93.5 fL (80.0-97.0); Monocytes # (A) 0.62 10*3/uL (0.20-1.00); Monocytes % (A) 6.5 %; Neutrophils # (A) 7.93 10*3/uL (1.80-7.70); Neutrophils % (A) 83.7 %; Platelet Count 144 10*3/uL (140-440); RBC 4.62 10*6/uL (4.40-5.60); RDW 13.5 % (11.5-14.5); WBC 9.49 10*3/uL (4.50-10.00)
[2025-02-11 16:17] LABS: ALT 29 U/L (4-49); AST 30 U/L (17-59); African American GFR (CKD) >90 (>60 ml/min/1.73 sqM); Albumin 3.9 g/dL (3.5-5.0); Alkaline Phosphatase 41 U/L (38-126); Anion Gap 8 mmol/L; Blood Urea Nitrogen 15 mg/dL (9-20); Calcium 9.3 mg/dL (8.4-10.2); Carbon Dioxide 26 mmol/L (22-30); Chloride 105 mmol/L (98-107); Glucose 136 mg/dL (74-99); Non-African American GFR(CKD) 84 (>60 ml/min/1.73 sqM); Potassium 4.3 mmol/L (3.5-5.1); Sodium 139 mmol/L (137-145); Total Bilirubin 0.5 mg/dL (0.2-1.3); Total Protein 6.7 g/dL (6.3-8.2)
[2025-02-11 16:18] LABS: INR 0.9 (<1.2); Partial Thromboplastin Time 23.1 sec (22.0-30.0); Prothrombin Time 10.6 sec (10.0-12.5)
--- NOTE | 2025-02-11 16:54 | CT ---
EXAMINATION TYPE: CT brain wo con CT DLP: 1098.4 mGycm, Automated exposure control for dose reduction was used. DATE OF EXAM: 02/11/2025 4:49 PM COMPARISON: None. CLINICAL INDICATION:Male, 79 years old with history of fall injury, Fall. Pain. TECHNIQUE: Brain: Multiple axial CT images of the brain were obtained without IV contrast. . Coronal and sagitta l reformats reviewed. FINDINGS: Brain: Extra-axial spaces: No abnormal extra-axial fluid collections. Ventricular system: Within normal limits Cerebral parenchyma: Cerebral atrophy. No acute intraparenchymal hemorrhage or mass effect. The rojas -white junction is well differentiated. Scattered hypoattenuating areas are seen within the periventr icular white matter. Cerebellum: Unremarkable. Mass effect: No evidence of midline shift. Intracranial vasculature: unremarkable Soft tissues: Normal. Calvarium/osseous structures: No depressed skull fracture. Paranasal sinuses and mastoid air cells: Clear Visualized orbits: Orbital contents are intact. IMPRESSION: 1. No acute intracranial process. 2. Nonspecific minimal white matter changes, likely secondary to chronic small vessel ischemic diseas e. [facility], , 02/11/2025 4:51 PM
[2025-02-11] MEDS ORDERED: NALOXONE 0.4 MG/ML 1 ML VIAL IV PRN (17:20)
[2025-02-11] MEDS: MORPHINE SULFATE 4 MG/ML SYRINGE IV STA (19:12)
[2025-02-11] MEDS: SODIUM CHLORIDE 0.9% 1,000 ML IV SCH (19:12)
--- NOTE | 2025-02-11 19:57 | CT ---
EXAMINATION TYPE: CT hip RT wo con CT DLP: 996.5 mGycm, Automated exposure control for dose reduction was used. DATE OF EXAM: 02/11/2025 7:39 PM COMPARISON: Pelvic and right femur radiographs of the same date CLINICAL INDICATION:Male, 79 years old with history of surgical planning; PHH, pain, fracture TECHNIQUE: Axial images were obtained of the right hip without the use of IV contrast. Additional co azra and sagittal reformatted images and soft tissue and bone window were obtained for review. FINDINGS: Acute impacted basicervical fracture through the femoral neck of the right proximal femur w ith some shortening of approximately 1.1 cm. There is some mild comminution identified. No dislocatio n of the femoral head. Mild osteoarthritic change of the right hip. No significant soft tissue swelli ng or joint effusion is identified. No focal muscular atrophy or edema is identified. No radiopaque f oreign body identified. Degenerative changes of the right SI joint with anterior bridging. Prominent osteophytosis at L5-S1. Pelvic phleboliths. Partially visualized enlarged prostate gland. IMPRESSION: Acute impacted basicervical fracture through the proximal right femoral neck as seen on prior radiogr aph. [facility], , 02/11/2025 7:55 PM
--- NOTE | 2025-02-11 21:01 | P.HPOR ---
History of Present Illness H&P Date: 02/11/25 Chief Complaint: Right hip pain Patient presented to the ED this afternoon after a fall from standing after he slipped walking in his driveway, he fell onto his right side and had immediate pain to the right hip and inability to bear weight. His neighbor had to call the ambulance as he was unable to get up from the ground. He denies any further injuries during this event, the pain is well localized to the right hip without radiation down the leg. Prior to this fall he denies any significant right hip pain. Patient is a community ambulator at baseline however he denies any strenuous activities or hobbies, does not require any assistive devices for ambulation at baseline. Of note patient has a history of a PE diagnosed last year and is currently on Eliquis. Review of Systems Constitutional: Denies chills, Denies fever Cardiovascular: Denies chest pain Respiratory: Denies wheezing Musculoskeletal: Reports as per HPI Neurological: Denies numbness, Denies tingling Psychiatric: Denies confusion Past Medical History Past Medical History: Pulmonary Embolus (PE) Additional Past Medical History / Comment(s): Kidney stones History of Any Multi-Drug Resistant Organisms: None Reported Past Surgical History: Cholecystectomy, Hernia Repair Additional Past Surgical History / Comment(s): Thrombectomy procedure through right common iliac vein Past Psychological History: No Psychological Hx Reported Smoking Status: Never smoker Past Alcohol Use History: None Reported Past Drug Use History: None Reported Medications and Allergies Home Medications and Allergies Comment(s): Eliquis Home Medications Medication Instructions Recorded Confirmed Type Apixaban [Eliquis] 5 mg PO BID@1000,2200 02/11/25 02/11/25 History Cholecalciferol [Vitamin D3 (25 50 mcg PO W/BRKFST 02/11/25 02/11/25 History Mcg = 1000 Iu)] Magnesium Oxide [Mag-Oxide] 200 mg PO W/BRKFST 02/11/25 02/11/25 History Milk Thistle 150 mg PO W/BRKFST 02/11/25 02/11/25 History Multivitamins, Thera [Multivitamin 1 tab PO W/BRKFST 02/11/25 02/11/25 History (formulary)] Nitric Oxide 1 tab PO W/BRKFST 02/11/25 02/11/25 History Amanda-3/Dha/Epa/Fish Oil [Fish Oil 1 cap PO W/BRKFST 02/11/25 02/11/25 History 1,000 mg Softgel] Allergies Allergy/AdvReac Type Severity Reaction Status Date / Time Penicillins Allergy Rash/Hives Verified 02/11/25 17:34 Physical Examination General: Patient is alert and oriented CV: Patient has intact distal pulses and normal heart rate Pulm: Patient exhibits no respiratory distress no audible wheezing MSK: Right hip Skin is intact, tender to palpation globally around the right hip Leg is in a shortened and externally rotated position Patient has pain with any motion of the right leg Patient has intact light touch sensation throughout the right leg and foot Patient is able to plantar and dorsiflex the ankle as well as flex and extend the digits of the foot There is palpable DP pulses and brisk capillary refill throughout the foot On tertiary exam there is no further areas of trauma noted, no further areas of tenderness or instability to the bilateral upper extremities left lower extrem ity and distal right lower extremity Results - Labs Labs: Abnormal Lab Results - Last 24 Hours (Table) 02/11/25 02/11/25 Range/Units 15:50 15:50 Immature Gran # 0.08 H (0.00-0.04) 10*3/uL Neutrophils # 7.93 H (1.80-7.70) 10*3/uL Lymphocytes # 0.81 L (0.90-5.00) 10*3/uL Eosinophils # 0.03 L (0.04-0.35) 10*3/uL Glucose 136 H (74-99) mg/dL H & H 02/11/25 Range/Units 15:50 Hgb 14.4 (13.0-17.0) g/dL Hct 43.2 (39.6-50.0) % Coagulation 02/11/25 Range/Units 15:50 INR 0.9 (<1.2) Result Diagrams: 02/11/25 15:50 02/11/25 15:50 - Diagnostic results Hip x-ray: image reviewed (X-ray of the right hip shows a displaced transcervical femoral neck fracture without significant degenerative changes of the hip joint, additionally full-length femur films confirm this finding and there is no further evidence of distal trauma to the right femur) Assessment and Plan Assessment: Displaced right femoral neck fracture (1) Displaced fracture of right femoral neck Current Visit: Yes Status: Acute Code(s): S72.001A - FRACTURE OF UNSP PART OF NECK OF RIGHT FEMUR, INIT SNOMED Code(s): 2569225 Plan: Given the displaced nature of the femoral neck fracture patient would benefit from operative intervention for this injury in order to promote early ambulation Given the displaced nature and location of the fracture and arthroplasty versus internal fixation would present the best option for this patient in order to again promote early weightbearing as well as limit potential issues with fracture nonunion or hardware complication as well as minimize chances of revision surgery Detailed discussion was had with the patient and family regarding the nature of the injury. With a fracture as a result of minor trauma this is an indication of poor bone quality and they are encouraged to discuss further metabolic testing and workup with their primary care physician in coordination with our team and possibly even an enocrinologist. They sustained an unstable hip fracture. Based on their baseline ambulatory status this is an injury that would greatly benefit from surgical intervention in order to provide patient with the best chance of regaining mobility after this injury. We discussed non operative treatment is theoretically possible but would require prolonged non weight bearing to the affected leg which would ultimately result in prolonged imm obilization and is associated with significantly increased mortality rates. We also discussed the possibility of internal fixation for this injury, however given the location and displaced nature of the fracture there is concern about the potential for fracture union as well as potential for hardware complications and potential for revision surgery. Regarding total hip arthroplasty, given patients minimal degenerative changes and no significant pain preceding his fall and his associated baseline functional demands it is unlikely that a total hip replacement would provide patient with significant functional gains. Overall hemiarthroplasty provides the best opportunity for the patient to achieve a good functional result while minimizing the chances of potential revision surgeries. we discussed that the most appropriate surgical option for this injury would be a hemiarthroplasty. The risks of surgery include scarring, risk of swelling and possible permanent swelling of the affected extremity, superficial vs deep infections which may require long-term IV antibiotics as well as potential further surgical intervention, damage to surrounding structures including muscles, nerve, tendons, blood vessels, compartment syndrome, hardware failure, leg length discrepancy, intraoperative fracture, need for additional future surgery. Patient and family are in agreement with the proposed plan patient has provided verbal as well as written consent to undergo surgery as discussed once patient is medically optimized. Nonweightbearing to the right lower extremity Appreciate medical evaluation for preoperative assessment and medical co- management Multimodal pain regimen for pain relief Hold patient's baseline Eliquis and avoid any anticoagulation on day of surgery Will plan for surgery tomorrow 02/12 pending medical evaluation and optimization N.p.o. at midnight tonight for anticipated OR tomorrow afternoon
[2025-02-11] MEDS: FAMOTIDINE 20 MG TAB PO SCH (22:54)
--- NOTE | 2025-02-11 23:37 | P.CONS ---
History of Present Illness - Reason for Consult Consult date: 02/11/25 medical comanagement - Chief Complaint s/p fall - History of Present Illness Mr. Dumont is a 79 oo wiht a pmhx of submassive PE in July 2024 to which he attributes to be 2/2 to immobility Mr. Dumont was in his usual state of health up until today. He reports that he was ambulating outside and he had slipped on wet pavement. He reports he landed on his right hip. He reports he was unable to get up off the floor and had called his neighbor for assistance. His neighbor had called EMS who had then prompted to the hospital for further evaluation. When he had presented to the hospital is hemodynamically stable afebrile was 94% room air. Lab work revealed a white blood cell count 9.49 hemoglobin is 14.4 platelet count was 144. INR was 0.9. CMP has showed no significant abnorma lities. He had a hip x-ray which revealed acute impacted femoral fracture. He had a chest x-ray which revealed no acute process. CT head was negative. He had a CT hip done by orthopedic surgery who had shown a acute impacted fracture through the proximal right femoral neck. He was then admitted to orthopedic surgery and internal medicine was consulted. The patient was seen in room 461. He is currently supine in bed. Reports mild pain but otherwise is able to converse without difficulty. Of note his last dose of Eliquis was on February 10 morning Review of Systems Pertinent positives and negatives as discussed in HPI, a complete review of systems was performed and all other systems are negative. Past Medical History Past Medical History: Pulmonary Embolus (PE) Additional Past Medical History / Comment(s): Kidney stones History of Any Multi-Drug Resistant Organisms: None Reported Past Surgical History: Cholecystectomy, Hernia Repair Additional Past Surgical History / Comment(s): Thrombectomy procedure through right common iliac vein Past Psychological History: No Psychological Hx Reported Smoking Status: Never smoker Past Alcohol Use History: None Reported Past Drug Use History: None Reported Medications and Allergies Home Medications Medication Instructions Recorded Confirmed Type Apixaban [Eliquis] 5 mg PO BID@1000,2200 02/11/25 02/11/25 History Cholecalciferol [Vitamin D3 (25 50 mcg PO W/BRKFST 02/11/25 02/11/25 History Mcg = 1000 Iu)] Magnesium Oxide [Mag-Oxide] 200 mg PO W/BRKFST 02/11/25 02/11/25 History Milk Thistle 150 mg PO W/BRKFST 02/11/25 02/11/25 History Multivitamins, Thera [Multivitamin 1 tab PO W/BRKFST 02/11/25 02/11/25 History (formulary)] Nitric Oxide 1 tab PO W/BRKFST 02/11/25 02/11/25 History [place]-3/Dha/Epa/Fish Oil [Fish Oil 1 cap PO W/BRKFST 02/11/25 02/11/25 History 1,000 mg Softgel] Allergies Allergy/AdvReac Type Severity Reaction Status Date / Time Penicillins Allergy Rash/Hives Verified 02/11/25 17:34 Physical Exam Vitals: Vital Signs Temp Pulse Pulse Resp BP BP Pulse Ox 02/11/25 22:52 108 H 02/11/25 22:00 110 H 136/87 02/11/25 21:25 120 H 160/95 02/11/25 21:00 115 H 18 146/92 94 L 02/11/25 19:05 114 H 18 139/91 96 02/11/25 14:37 99.1 F 98 17 171/100 98 Intake and Output 02/11/25 02/11/25 02/12/25 14:59 22:59 06:59 Other: Weight 106.594 kg General: non toxic, no distress, appears older than stated age Derm: warm, dry Head: atraumatic, normocephalic, symmetric Eyes: EOMI, no lid lag, anicteric sclera, pupils equal round reactive to light ENT: Nose and ears atraumatic, no thrush, no pharyngeal erythema Neck: No thyromegaly, no cervical lymphadenopathy, trachea midline, supple Mouth: no lip lesion, mucus membranes moist Cardiovascular: S1S2 reg, no murmur, positive posterior tibial pulse bilateral, no edema, capillary refill less than 2 seconds Lungs: clear to ascultation bilateral, no ronchi, no rales, no wheeze, no accessory muscle use Abdominal: soft, nontender to palpation, no guarding, no appreciable organomegaly, normal bowel sounds Ext: right leg appears shorter than left leg and is externally rotated Neuro: CN II-XI grossly intact, light touch intact all 4 extremities, finger to nose within normal limits, Psych: Alert, oriented, appropriate affect singh catheter in place Results CBC & Chem 7: 02/11/25 15:50 02/11/25 15:50 Labs: Abnormal Lab Results - Last 24 Hours (Table) 02/11/25 02/11/25 Range/Units 15:50 15:50 Immature Gran # 0.08 H (0.00-0.04) 10*3/uL Neutrophils # 7.93 H (1.80-7.70) 10*3/uL Lymphocytes # 0.81 L (0.90-5.00) 10*3/uL Eosinophils # 0.03 L (0.04-0.35) 10*3/uL Glucose 136 H (74-99) mg/dL Assessment and Plan Assessment: #) Mechanical fall resulting in acute fracture through the proximal right femoral neck. Currently NPO and continue NWB status. strict bedrest. He is scheduled for surgery tomorrow with orthopedic surgery and his RCRI is 0 points. OK to proceed with surgery as long as orthopedic surgery is aware his last dose of eliquis was on 02/10 AM #) History of submassive PE and s/p mechanical thrombectomy of right main pulmonary artery, left main pulmonary artery and segmental branches and right atrial thrombus. was supposed to be on eliquis for 6 months which he should be on the tail end course. Will defer to PCP if eliquis should be continued for only 6 months or indefinite. we will restart eliquis 5 mg bid after surgery #) history of basal cell caricinoma of the skin DVT ppx: scds, hold dvt ppx unil after surgery gi ppx: none indicated
[2025-02-11] MEDS: ACETAMINOPHEN TAB 500 MG TAB PO SCH (23:49)
[2025-02-11] MEDS: MORPHINE SULFATE 4 MG/ML SYRINGE IV PRN (23:50)
[2025-02-12] MEDS: HYDROcodone/APAP 5-325MG 1 EACH TAB PO PRN (04:21)
[2025-02-12] MEDS: CHOLECALCIFEROL 25 MCG (1000 IU) TABLET PO SCH (05:46)
[2025-02-12 08:01] LABS: Basophils # (A) 0.03 X 10*3/uL (0.00-0.10); Basophils % (A) 0.3 %; Eosinophils # (A) 0.08 X 10*3/uL (0.04-0.35); Eosinophils % (A) 0.7 %; HCT 44.4 % (39.6-50.0); HGB 14.6 g/dL (13.0-17.0); Lymphocytes # (A) 0.99 X 10*3/uL (0.90-5.00); Lymphocytes % (A) 9.1 %; MCH 31.4 pg (27.0-32.0); MCHC 32.9 g/dL (32.0-37.0); MCV 95.5 FL (80.0-97.0); Monocytes # (A) 1.09 X 10*3/uL (0.20-1.00); Monocytes % (A) 10.1 %; NRBC Per 100 WBC 0 X 10*3/uL (0.00-0.01); Neutrophils % (A) 79.4 %; Platelet Count 149 X 10*3/uL (140-440); RBC 4.65 X 10*6/uL (4.40-5.60); RDW 13.8 % (11.5-14.5); WBC 10.83 X 10*3/uL (4.50-10.00)
[2025-02-12] MEDS: polyethylene glycoL 3350 17 GM POWD.PACK PO SCH (08:14)
[2025-02-12 08:26] LABS: BUN/Creat Ratio 14.56 Ratio (12.00-20.00); Blood Urea Nitrogen 13.1 mg/dL (9.0-27.0); Calcium 8.4 mg/dL (8.7-10.3); Carbon Dioxide 20.6 mmol/L (21.6-31.8); Chloride 106 mmol/L (96-109); Glucose 118 mg/dL (70-110); Potassium 4.4 mmol/L (3.5-5.5); Sodium 139 mmol/L (135-145)
--- NOTE | 2025-02-12 13:53 | P.PN ---
Subjective Progress Note Date: 02/12/25 Subjective: Patient seen and examined at bedside. No acute events overnight. Waiting for surgery. Pertinent positives and negatives as discussed above, a complete review of systems was performed and all other systems are negative. Vitals Signs Reviewed. General: Nontoxic, no distress, appears at stated age Derm: Warm, dry Head: Atraumatic, normocephalic, symmetric Eyes: EOMI, no lid lag, anicteric sclera Mouth: No lip lesion, mucus membranes moist Cardiovascular: S1S2 reg, no murmur Lungs: CTA bilateral, no rhonchi, no rales, no accessory muscle use Abdominal: Soft, nontender to palpation, no guarding, no appreciable organomegaly Ext: Unable to move right leg due to pain, externally rotated Neuro: CN II-XI grossly intact, no focal neuro deficits Psych: Alert, oriented, appropriate affect Data Reviewed Today: Pertinent Labs: WBC 10.83, bicarb 20.6, creatinine 0.9 Imaging: No new imaging Assessment and Plan: Mechanical fall Acute right femoral neck fracture Leukocytosis, reactive - Patient pending surgery today - Pain control, and bowel regimen per orthopedic surgery - Okay to continue normal saline at 120 cc an hour Mild non-anion gap metabolic acidosis - Likely in the setting of normal saline - Repeat BMP tomorrow History of provoked PE - Resumed Eliquis after surgery Thank you for allowing us to participate in the care of this pleasant patient. Do not hesitate to contact us with questions. Someone can be reached from the [facility] hospitalist group all hours of the day at [phone] or via perfect serve. Objective - Vital Signs Vital signs: Vital Signs Temp 98.7 F 02/12/25 13:27 Pulse 94 02/12/25 13:27 Resp 18 02/12/25 13:27 BP 165/90 02/12/25 13:27 Pulse Ox 95 02/12/25 13:27 FiO2 Intake & Output 02/11/25 02/12/25 02/12/25 18:59 06:59 18:59 Intake Total 1200 Output Total 600 Balance 600 Weight 106.594 kg 106.594 kg Intake: Intake, IV Titration 1200 Amount Sodium Chloride 0.9% 1, 1200 000 ml @ 120 mls/hr IV . Q8H20M [facility] Rx#:[id number] Output: Urine 600 - Labs CBC & Chem 7: 02/12/25 04:32 02/12/25 04:32 Labs: Abnormal Lab Results - Last 24 Hours (Table) 02/11/25 02/11/25 02/12/25 Range/Units 15:50 15:50 04:32 WBC 10.83 H (4.50-10.00) X 10*3/uL Immature Gran # 0.08 H (0.00-0.04) 10*3/uL Neutrophils # 7.93 H 8.60 H (1.80-7.70) 10*3/uL Lymphocytes # 0.81 L (0.90-5.00) 10*3/uL Monocytes # 1.09 H (0.20-1.00) X 10*3/uL Eosinophils # 0.03 L (0.04-0.35) 10*3/uL Carbon Dioxide (21.6-31.8) mmol/L Anion Gap (4.00-12.00) mmol/L Glucose 136 H (74-99) mg/dL Calcium (8.7-10.3) mg/dL 02/12/25 Range/Units 04:32 WBC (4.50-10.00) X 10*3/uL Immature Gran # (0.00-0.04) 10*3/uL Neutrophils # (1.80-7.70) 10*3/uL Lymphocytes # (0.90-5.00) 10*3/uL Monocytes # (0.20-1.00) X 10*3/uL Eosinophils # (0.04-0.35) 10*3/uL Carbon Dioxide 20.6 L (21.6-31.8) mmol/L Anion Gap 12.40 H (4.00-12.00) mmol/L Glucose 118 H (74-99) mg/dL Calcium 8.4 L (8.7-10.3) mg/dL
[2025-02-12] MEDS: IV FLUID CONTINUATION 1,000 ML IV ONE (15:26)
[2025-02-12] MEDS: ACETAMINOPHEN TAB 500 MG TAB PO STA (15:48)
[2025-02-12] MEDS: ONDANSETRON 4 MG/2 ML VIAL IVP PRN (16:00)
[2025-02-12] MEDS: DEXAMETHASONE SOD PHOSPHATE 4 MG/ML 1 ML VIAL IVP STA (16:01)
[2025-02-12] MEDS ORDERED: LIDOCAINE 1% INJ 10MG/ML (20 ML MDV) ONE (16:02)
[2025-02-12] MEDS ORDERED: PROPOFOL 10 MG/ML 20 ML VIAL IV ONE (16:02)
[2025-02-12] MEDS ORDERED: ROPIVACAINE 5 MG/ML 30 ML VIAL ONE (16:02)
[2025-02-12] MEDS ORDERED: NEOSTIGMINE 1 MG/ML 10 ML VIAL ONE (16:02)
[2025-02-12] MEDS ORDERED: SUCCINYLCHOLINE CHLORIDE 200 MG/10 ML VIAL IV ONE (16:02)
[2025-02-12] MEDS ORDERED: GLYCOPYRROLATE 0.2 MG/ML 2 ML VIAL ONE (16:02)
[2025-02-12] MEDS ORDERED: TRANEXAMIC 1,000 MG/100ML-NACL PREMIX BAG ONE (16:02)
[2025-02-12] MEDS ORDERED: fentaNYL (PF) 50 MCG/ML 2 ML AMP ONE (16:02)
[2025-02-12] MEDS ORDERED: PHENYLEPHRINE-0.9% NACL SYG 1,000 MCG/10 ML SYRINGE ONE (16:02)
[2025-02-12] MEDS ORDERED: DEXAMETHASONE SOD PHOSPHATE 4 MG/ML 1 ML VIAL ONE (16:02)
[2025-02-12] MEDS ORDERED: ROCURONIUM 10 MG/ML (5 ML VIAL) IV ONE (16:02)
[2025-02-12] MEDS: MIDAZOLAM 2 MG/2 ML VIAL IV ONE (16:03)
[2025-02-12] MEDS: SODIUM CHLORIDE 0.9% 50 ML with ceFAZolin 2,000 MG IV ONE (16:07)
--- NOTE | 2025-02-12 16:23 | P.ANPRN ---
Procedure Note - Anesthesia - Nerve Block Performed Right Garth Single Time Out Performed: Yes Date of Procedure: 02/12/25 Procedure Start Time: 15:51 Procedure Stop Time: 15:58 Location of Patient: PreOp Indication: Acute Post-Operative Pain, Requested by Surgeon Sedation Type: Sedate with meaningful contact maintained Preparation: Sterile Prep, Sterile Dressing Position: Supine Catheter: None Needle Types: Facet Needle Gauge: 20 Ultrasound used to visualize needle placement: Yes Ultrasound used to observe medication spread: Yes Injectate: 0.5% Ropivacaine (see comment for volume) (30 ml + decadron 4 mg) Blood Aspirated: No Pain Paresthesia on Injection Noted: No Resistance on Injection: Normal Image Stored and Saved: Yes Events: Uneventful and Well Tolerated
[2025-02-12] MEDS: ROPIVACAINE/EPI/CLONIDINE/KET 50 ML SYRINGE MISCELLANE PRN (16:56)
[2025-02-12] MEDS: VASOPRESSIN 20 UNIT in SODIUM CHLORIDE 0.9% 200 ML IV ONE (17:13)
[2025-02-12] MEDS: LACTATED RINGERS 1,000 ML IV ONE (17:28)
--- NOTE | 2025-02-12 19:12 | FL ---
EXAMINATION TYPE: FL guidance operating room, XR Hip Limited RT DATE OF EXAM: 02/12/2025 CLINICAL INDICATION: Male, 79 years old with history of GODWIN RT HIP, right hip fracture. TECHNIQUE: Fluoroscopy. Intraoperative 2 views right hip. COMPARISON: CT right hip one day earlier. FINDINGS: Fluoroscopic guidance was provided during right hip replacement procedure performed by Dr. Méndez. A total of 25 seconds of fluoroscopic time was utilized during the procedure and 4 spot imag es was acquired. Intraoperative images acquired show satisfactory positioning of total hip arthroplasty on frontal pro jection. TOTAL DAP = 1.4056 Gycm2. IMPRESSION: As Above. [facility], , 02/12/2025 7:10 PM
--- NOTE | 2025-02-12 19:30 | P.PN ---
Progress Note - Text Progress Note Date: 02/12/25 No acute issues overnight, patient still notes pain to the right hip that is improved after pain regimen. Denies any issues with numbness to the right leg, SOB or chest pain. On exam patient has pain to the right hip but remains neurovascularly intact to the right lower extremity but pain with any motion of the right hip normal heart rate, intact distal pulses Assessment/Plan Right displaced femoral neck fracture Patient wishes to proceed with right hip hemiarthroplasty after review of surgical risks and benefits NPO OR today for hemiarthroplasty
[2025-02-12] MEDS ORDERED: HYDROmorphone 0.5 MG/0.5 ML SYRINGE IVP PRN ×3 (19:33)
[2025-02-12] MEDS ORDERED: HYDROcodone/APAP 5-325MG 1 EACH TAB PO PRN (19:33)
[2025-02-12] MEDS ORDERED: MAGNESIUM HYDROXIDE 2,400 MG/30 ML CUP PO PRN (19:33)
[2025-02-12] MEDS ORDERED: ONDANSETRON 4 MG/2 ML VIAL IVP PRN (19:33)
[2025-02-12] MEDS ORDERED: NALOXONE 0.4 MG/ML 1 ML VIAL IV PRN (19:33)
[2025-02-12] MEDS: SENNOSIDES-DOCUSATE SODIUM 1 EACH TAB PO SCH (22:12)
[2025-02-13] MEDS: SODIUM CHLORIDE 0.9% 1,000 ML IV SCH (00:20)
[2025-02-13] MEDS: ceFAZolin 2 GM in DEXTROSE 5% IN WATER 50 ML IVPB SCH (00:22)
[2025-02-13 03:55] VITALS: RESP 18
[2025-02-13 08:23] VITALS: BP 129/75; PULSE 94; TEMP 97.4
[2025-02-13 08:29] LABS: African American GFR (CKD) >90 (>60 ml/min/1.73 sqM); Anion Gap 7 mmol/L; Blood Urea Nitrogen 18 mg/dL (9-20); Calcium 8.3 mg/dL (8.4-10.2); Carbon Dioxide 20 mmol/L (22-30); Chloride 109 mmol/L (98-107); Glucose 129 mg/dL (74-99); Non-African American GFR(CKD) 81 (>60 ml/min/1.73 sqM); Potassium 4.6 mmol/L (3.5-5.1); Sodium 136 mmol/L (137-145)
[2025-02-13 09:12] LABS: Basophils # (A) 0.03 X 10*3/uL (0.00-0.10); Basophils % (A) 0.2 %; Eosinophils # (A) 0 X 10*3/uL (0.04-0.35); Eosinophils % (A) 0 %; HCT 39.8 % (39.6-50.0); HGB 12.5 g/dL (13.0-17.0); Lymphocytes # (A) 0.46 X 10*3/uL (0.90-5.00); Lymphocytes % (A) 3.5 %; MCH 30.9 pg (27.0-32.0); MCHC 31.4 g/dL (32.0-37.0); MCV 98.3 FL (80.0-97.0); Mean Platelet Volume 11.3 FL (9.5-12.2); Monocytes # (A) 1.01 X 10*3/uL (0.20-1.00); Monocytes % (A) 7.6 %; NRBC Per 100 WBC 0 X 10*3/uL (0.00-0.01); Neutrophils # (A) 11.71 X 10*3/uL (1.80-7.70); Neutrophils % (A) 88.2 %; Platelet Count 131 X 10*3/uL (140-440); RBC 4.05 X 10*6/uL (4.40-5.60); RDW 13.8 % (11.5-14.5); WBC 13.27 X 10*3/uL (4.50-10.00)
--- NOTE | 2025-02-13 10:09 | P.DS ---
Providers Date of admission: 02/11/25 17:25 Expected date of discharge: 02/13/25 Attending physician: Xavier Méndez MD Consults: 02/11/25 17:20 Consult Physician Routine Consulting Provider: Bashir Seaman Consult Reason/Comments: Medical management Do you want consulting provider notified?: Yes Primary care physician: Andrews Malave - Discharge Diagnosis(es) (1) S/P hip hemiarthroplasty Status: Acute (2) Displaced fracture of right femoral neck Status: Acute (3) Fall Status: Acute Hospital Course: This is an 79-year-old male who sustained a fracture of his right hip after a fall at home on 02/11/2025. The patient presented for evaluation in the emergency room. After discussion and consideration patient elects to proceed with right hip hemiarthroplasty. The patient is seen preoperatively by Dr. Méndez and medically cleared for surgery by internal medicine. Patient is admitted to [facility] on 02/11/2025 and right hip hemiarthroplasty is performed on 02/12/2025. The procedure is performed without complication or sequelae. The patient is doing well postoperatively. Labs and vital signs are stable on day of discharge. On day of discharge patient's hip incision is healing well. There is minimal e rythema. There is no drainage noted at this time. There is minimal soft tissue swelling to the hip and thigh. Patient has full foot and ankle motion without difficulty or pain. Calf is soft and nontender to palpation. Neurovascular status to the right lower extremity is intact. Patient is discharged home in good condition. Please see med rec for accurate list of home medications. Patient Condition at Discharge: Fair Plan - Discharge Summary Discharge Rx Participant: No New Discharge Prescriptions: New Sennosides [Senokot] 2 tab PO DAILY PRN #60 tablet PRN Reason: Constipation HYDROcodone/APAP 5-325MG [[place] 5-325] 1 - 2 tab PO Q6HR PRN #32 tab PRN Reason: Pain Continue [place]-3/Dha/Epa/Fish Oil [Fish Oil 1,000 mg Softgel] 1 cap PO W/BRKFST Multivitamins, Thera [Multivitamin (formulary)] 1 tab PO W/BRKFST Magnesium Oxide [Mag-Oxide] 200 mg PO W/BRKFST Cholecalciferol [Vitamin D3 (25 Mcg = 1000 Iu)] 50 mcg PO W/BRKFST Apixaban [Eliquis] 5 mg PO BID@1000,2200 No Action Milk Thistle 150 mg PO W/BRKFST Nitric Oxide 1 tab PO W/BRKFST Discharge Medication List Apixaban [Eliquis] 5 mg PO BID@1000,2200 02/11/25 [History] Cholecalciferol [Vitamin D3 (25 Mcg = 1000 Iu)] 50 mcg PO W/BRKFST 02/11/25 [History] Magnesium Oxide [Mag-Oxide] 200 mg PO W/BRKFST 02/11/25 [History] Milk Thistle 150 mg PO W/BRKFST 02/11/25 [History] Multivitamins, Thera [Multivitamin (formulary)] 1 tab PO W/BRKFST 02/11/25 [History] Nitric Oxide 1 tab PO W/BRKFST 02/11/25 [History] [place]-3/Dha/Epa/Fish Oil [Fish Oil 1,000 mg Softgel] 1 cap PO W/BRKFST 02/11/25 [History] HYDROcodone/APAP 5-325MG [[place] 5-325] 1 - 2 tab PO Q6HR PRN #32 tab 02/13/25 [Rx] Sennosides [Senokot] 2 tab PO DAILY PRN #60 tablet 02/13/25 [Rx] Follow up Appointment(s)/Referral(s): Xavier Méndez MD [STAFF PHYSICIAN] - 2 Weeks (Office is closed at time of discharge. Please call for follow-up appointment.) Andrews Malave DO [Primary Care Provider] - 1-2 days (Office is closed at time of discharge. Please call for follow-up appointment.) Ambulatory/Diagnostic Orders: Walker w/ Wheels [DME.AMB1] Time Frame: 3 Months, Location: None Selected Activity/Diet/Wound Care/Special Instructions: The [facility] is arranging home care services for you. If you do not hear anything from a home care agency within 48 hours of discharge, please call the [facility] . Weightbearing as tolerated with walker. Leave dressing intact until follow up. If dressing become saturated, please remove. Please resume Eliquis. Recommend use of compression stockings daily until follow up to help prevent swelling and blood clots. May remove at night before sleeping. Please follow[facility]up with [facility] 2 weeks and call with any questions or concerns, . Discharge Disposition: HOME WITH HOME HEALTH SERVICES
--- NOTE | 2025-02-13 11:19 | P.PN ---
Subjective Progress Note Date: 02/13/25 Subjective: Patient seen and examined at bedside. No acute events overnight. Pertinent positives and negatives as discussed above, a complete review of systems was performed and all other systems are negative. Vitals Signs Reviewed. General: Nontoxic, no distress, appears at stated age Derm: Warm, dry, dressing clean, dry, intact Head: Atraumatic, normocephalic, symmetric Eyes: EOMI, no lid lag, anicteric sclera Mouth: No lip lesion, mucus membranes moist Cardiovascular: S1S2 reg, no murmur Lungs: CTA bilateral, no rhonchi, no rales, no accessory muscle use Abdominal: Soft, nontender to palpation, no guarding, no appreciable organomegaly Neuro: CN II-XI grossly intact, no focal neuro deficits Psych: Alert, oriented, appropriate affect Data Reviewed Today: Pertinent Labs: WBC 13.27, hemoglobin 12.5, platelet 131, bicarb 20, anion gap 7, creatinine 0.91 Imaging: No new imaging Assessment and Plan: Mechanical fall Acute right femoral neck fracture, status post repair Leukocytosis, reactive, anticipated outcome of surgery Acute blood loss anemia, anticipated outcome of surgery Mild thrombocytopenia, secondary to above - Pain control, and bowel regimen per orthopedic surgery - Plan for discharge by orthopedic surgery today Mild non-anion gap metabolic acidosis - Likely in the setting of normal saline History of provoked PE - Continue Eliquis 5 twice daily Patient is medically optimized for discharge Thank you for allowing us to participate in the care of this pleasant patient. Do not hesitate to contact us with questions. Someone can be reached from the [facility] hospitalist group all hours of the day at [phone] or via perfect serve. Objective - Vital Signs Vital signs: Vital Signs Temp 97.4 F L 02/13/25 08:23 Pulse 94 02/13/25 08:23 Resp 18 02/13/25 08:23 BP 129/75 02/13/25 08:23 Pulse Ox 97 02/13/25 08:23 FiO2 Intake & Output 02/12/25 02/13/25 02/13/25 18:59 06:59 18:59 Intake Total 1651 800 Output Total 1400 150 Balance 251 650 Intake: IV 1651 50 Oral 750 Output: Urine 900 150 Estimated Blood Loss 500 Other: Voiding Method Indwelling Catheter # Voids 1 - Labs CBC & Chem 7: 02/13/25 04:08 02/13/25 04:08 Labs: Abnormal Lab Results - Last 24 Hours (Table) 02/13/25 02/13/25 Range/Units 04:08 04:08 WBC 13.27 H (4.50-10.00) X 10*3/uL RBC 4.05 L (4.40-5.60) X 10*6/uL Hgb 12.5 L (13.0-17.0) g/dL MCV 98.3 H (80.0-97.0) FL MCHC 31.4 L (32.0-37.0) g/dL Plt Count 131 L (140-440) X 10*3/uL Immature Gran # 0.06 H (0.00-0.04) X 10*3/uL Neutrophils # 11.71 H (1.80-7.70) X 10*3/uL Lymphocytes # 0.46 L (0.90-5.00) X 10*3/uL Monocytes # 1.01 H (0.20-1.00) X 10*3/uL Eosinophils # 0 L (0.04-0.35) X 10*3/uL Sodium 136 L (137-145) mmol/L Chloride 109 H (98-107) mmol/L Carbon Dioxide 20 L (22-30) mmol/L Glucose 129 H (74-99) mg/dL Calcium 8.3 L (8.4-10.2) mg/dL
[2025-02-13] MEDS ORDERED: APIXABAN 5 MG TAB PO SCH (22:00)
--- NOTE | 2025-02-15 08:19 | P.PN ---
Subjective Progress Note Date: 02/13/25 Principal diagnosis: right femoral neck fracture sp right anterior hemiarthroplasty patient did well overnight, pain was well controlled on his current regimen was able to tolerate a diet and has been passing gas appropriately has already been able to ambulate a significant degree with the staff utilizing a walker and it is likely patient will be cleared for discharge from a therapy standpoint later today. Objective - Vital Signs Vital signs: Vital Signs Temp 97.4 F L 02/13/25 08:23 Pulse 94 02/13/25 08:23 Resp 18 02/13/25 08:23 BP 129/75 02/13/25 08:23 Pulse Ox 97 02/13/25 08:23 FiO2 Intake & Output 02/12/25 02/13/25 02/13/25 18:59 06:59 18:59 Intake Total 1651 800 Output Total 1400 150 Balance 251 650 Intake: IV 1651 50 Oral 750 Output: Urine 900 150 Estimated Blood Loss 500 Other: Voiding Method Indwelling Catheter # Voids 1 - Exam Patient denies any chest pain or shortness of breath, denies any calf pain on exam of the right hip/lower extremity his dressings are clean and intact, there is moderate tenderness to his incision, gentle hip motion is well selin ated, there is no calf tenderness patient able to actively plantar and dorsiflex his ankle intact light touch sensation throughout the right leg other than some harsh - incisional numbness palpable DP pulse and brisk capillary refill to the right foot less than 3 seconds - Labs CBC & Chem 7: 02/13/25 04:08 02/13/25 04:08 Labs: Abnormal Lab Results - Last 24 Hours (Table) 02/13/25 02/13/25 Range/Units 04:08 04:08 WBC 13.27 H (4.50-10.00) X 10*3/uL RBC 4.05 L (4.40-5.60) X 10*6/uL Hgb 12.5 L (13.0-17.0) g/dL MCV 98.3 H (80.0-97.0) FL MCHC 31.4 L (32.0-37.0) g/dL Plt Count 131 L (140-440) X 10*3/uL Immature Gran # 0.06 H (0.00-0.04) X 10*3/uL Neutrophils # 11.71 H (1.80-7.70) X 10*3/uL Lymphocytes # 0.46 L (0.90-5.00) X 10*3/uL Monocytes # 1.01 H (0.20-1.00) X 10*3/uL Eosinophils # 0 L (0.04-0.35) X 10*3/uL Sodium 136 L (137-145) mmol/L Chloride 109 H (98-107) mmol/L Carbon Dioxide 20 L (22-30) mmol/L Glucose 129 H (74-99) mg/dL Calcium 8.3 L (8.4-10.2) mg/dL Assessment and Plan (1) Displaced fracture of right femoral neck Current Visit: Yes Status: Acute Code(s): S72.001A - FRACTURE OF UNSP PART OF NECK OF RIGHT FEMUR, INIT SNOMED Code(s): 7264539 Plan: WBAT RLE patient may resume his baseline elequis for DVT ppx patient is doing very well and feels he would be ready to go home today and has been able to ambulate well already this morning anterior hip precautions explained dressings should remain in place until his follow up visit patient will be seen two weeks post op for incision check and updated images
--- NOTE | 2025-02-15 08:20 | P.OP ---
Date of Procedure: 02/12/25 Preoperative Diagnosis: Right displaced femoral neck fracture Postoperative Diagnosis: Same Procedure(s) Performed: Right hip hemiarthroplasty Implants: Eric Accolade C cemented femoral stem size 6 52 mm outer diameter head 28 mm inner diameter head Anesthesia: CASANDRA Surgeon: Xavier Méndez [employer]crete Paving Machine Operator #1: Fabien Browning Estimated Blood Loss (ml): 500 Pathology: none sent Condition: stable Disposition: PACU Indications for Procedure: Displaced right femoral neck fracture in an ambulatory patient Operative Findings: Displaced transcervical right femoral neck fracture Description of Procedure: Detailed discussion was had with the patient and family regarding the nature of the injury. With a fracture as a result of minor trauma this is an indication of poor bone quality and they are encouraged to discuss further metabolic testing and workup with their primary care physician in coordination with our team and possibly even an enocrinologist. They sustained an unstable hip fracture. Based on their baseline ambulatory status this is an injury that would greatly benefit from surgical intervention in order to provide patient with the best chance of regaining mobility after this injury. We discussed non operative treatment is theoretically possible but would require prolonged non weight bearing to the affected leg which would ultimately result in prolonged immo bilization and is associated with significantly increased mortality rates. We discussed that the most appropriate surgical option for this injury would be an arthroplasty type of procedure given the amount of displacement of the fracture. additionally we discussed the options of hemiarthroplasty versus total hip arthroplasty, patient does not have significant functional demands outside of activities of daily living and overall I think a hemiarthroplasty would provide them with a good functional hip that would allow them to complete her desired activities. The risks of surgery include scarring, risk of swelling and possible permanent swelling of the affected extremity, superficial vs deep infections, damage to surrounding structures including muscles, nerve, tendons, blood vessels, hardware failure, leg length discrepancy, intraoperative fracture, compartment syndrome, need for additional future surgery, blood clots, heart attack, . Patient understands these risks and wishes to proceed with surgery. Written consent was obtained Benefits include replacing the fractured area of bone and helping with baseline pain, providing the patient with the opportunity to weight bear on the extremity immediately after surgery. We also discussed the likely post operative course after surgery including several days in the hospital after surgery and evaluation by the PT and OT staff to aid in determining the proper destination after their hospitalization, they may require a period of time at a rehab or nursing facility. We also discussed realistic expectations regarding function after this injury, the best case scenario is they return to her baseline functional level but many times patients become more dependent on support aids such as walkers/canes/or wheelchairs based on their previous level of function. After repeated discussion of the above details, risks and benefits patient wished to proceed with surgical intervention to the left hip in the form of a hemiarthroplasty. The patient was brought to the operating room, and after induction of general anesthesia was placed supine on the Blanca table, care was taken to pad and protect all bony prominences. Positioning was checked with fluoroscopy and preoperative measurements were taken for estimations of leg length and offset. The right hip was then prepped and draped in a normal fashion. A standard time out was performed to again confirm the correct patient and laterality of the procedure. Antibiotics as well as TXA were confirmed to be administered prior to incision. A 12 cm incision was then made starting 2 fingerbreadths distal and 2 finger breaths lateral to the ASIS in line with the proximal femur. The skin was incised sharply. Subcutaneous tissues were divided sharply. Electrocautery was used for hemostasis. The fascia was split in line with skin incision. The interval between the sartorius and tensor fascia scott was then bluntly developed. The posterior fascia was opened with electrocautery. The lateral circumflex vessels were identified and cauterized prior to sectioning. A retractor was placed along the superior femoral neck as well as the anterior acetabular rim. A wide capsulectomy was performed. Once the joint capsule was entered expected hemarthrosis was encountered the neck cut was then made approximately 1 1/2 cm above the level of the lesser trochanter. The head and remnant femoral neck at the fracture site was extracted. Attention was then paid towards preparing the proximal femur. The central region was cleared of soft tissue. A canal finder was used to find the femoral canal. Sequential broaching was performed up to size [6] taking care to lateralize proximally. A calcar planer was used to fashion the medial calcar. There was good rotational stability. A standard neck along with a [52] mm head was placed. The hip was gently reduced. Fluoroscopy was used to check the adequacy of positioning along with leg lengths. I felt both were good. The hip was gently dislocated. The trial components were removed. At this point the femoral canal was then prepped initially a cement restrictor was placed at a depth 1-2 centimeters distal to the planned level of the distal component. Pulsatile lavage was used to clean the canal followed by application of vaginal packing soaked in epinephrine. Cement was then placed into the canal this was initially pressurized with thumb pressure in the proximal aspect of the femur followed by pressurization with the cement gun. the final size 6 implant was then placed and held in the appropriate position till the cement was hardened. A [52]mm outer diameter head was placed. This was gently impacted. The acetabulum was irrigated and the hip was then gently reduced. Final fluoroscopic view showed adequate placement of the implant implant as well as an appropriate cement mantle along with restorationism of leg length. Stability was checked and found to be stable with 90 of external rotation and 60 of extension of the right hip this was confirmed with fluoroscopy as well as direct visualization. The wound was irrigated with sterile lavage. The fascia was closed with running 1 strata fix suture. The subcutaneous tissues were reapproximated interrupted 0 and 2-0 Vicryl sutures. The skin was closed with 2-0 subcuticular strata fix suture. Skin adhesive and A sterile dressing was applied. The patient was then awoken from sedation and transferred to recovery room in good condition. After patient was moved off the operating room table leg lengths were assessed and found to be appropriately restored. Patient will be weightbearing as tolerated to the right lower extremity Patient's baseline Eliquis may be resumed to aid in DVT prophylaxis starting tomorrow Patient should maintain his dressing until his postoperative appointment We will plan to see patient back 2 weeks following his procedure for incision check and updated x-rays
== END 2025-02-13 11:24 | disposition home health service (06) | DRG 522 ==
LOC: EC 14:29 → 4SSUR 17:25
PROVIDERS: ADMIT Orthopaedic Surgery; ATTEND Orthopaedic Surgery
PROC: 3E0T3BZ Introduction of Anesthetic Agent into Peripheral Nerves and Plexi, Percutaneous Approach (ICD-10-PCS; 2025-02-12)
PROC: 3E0T33Z Introduction of Anti-inflammatory into Peripheral Nerves and Plexi, Percutaneous Approach (ICD-10-PCS; 2025-02-12)
PROC: 0SRR0J9 Replacement of Right Hip Joint, Femoral Surface with Synthetic Substitute, Cemented, Open Approach (ICD-10-PCS; principal; 2025-02-12 07:30)
DX: S72.031A Displaced midcervical fracture of right femur, initial encounter for closed fracture (principal); D62 Acute posthemorrhagic anemia; E87.20 Acidosis, unspecified; D69.59 Other secondary thrombocytopenia; D72.829 Elevated white blood cell count, unspecified; W01.0XXA Fall on same level from slipping, tripping and stumbling without subsequent striking against object, initial encounter; Z85.828 Personal history of other malignant neoplasm of skin; Z86.711 Personal history of pulmonary embolism; Z88.0 Allergy status to penicillin; Z79.01 Long term (current) use of anticoagulants; Z87.442 Personal history of urinary calculi
CPT/HCPCS: 36415; 64473; 70450; 71045; 72170; 73501; 80048; 80053; 85025; 85610; 85730; 86850; 86900; 86901; 93005; 96361; 96374; 99285